=== PATIENT | male | born 1965 | race Caucasian/White ===

== ENCOUNTER 2022-06-10 10:45 | Inpatient (IN) | payer OTHER ==
[~2022-06-10] VITALS: Ht 185.4 cm; Wt 100.7 kg
[2022-06-10] VITALS (50 sets, daily range): BP systolic 102–142; BP diastolic 70–92
[2022-06-10] MEDS ORDERED: TICAGRELOR 90 MG TAB PO ONE ×3 (11:00→14:00)
[2022-06-10] MEDS ORDERED: HEPARIN SODIUM (PORCINE) 5000 UNITS/ML 1ML VIAL IV ONE ×3 (11:00→14:00)
[2022-06-10] MEDS ORDERED: ASPirin 81 mg TAB PO ONE ×3 (11:00→14:00)
[2022-06-10] MEDS ORDERED: ATORVASTATIN 20 MG TAB PO ONE (11:00)
[2022-06-10] MEDS ORDERED: HEPARIN SODIUM (PORCINE) 5000 UNITS/ML 1ML VIAL ONE ×3 (11:02→13:37)
[2022-06-10] MEDS ORDERED: ASPirin 81 mg TAB ONE (11:02)
[2022-06-10] MEDS ORDERED: ATORVASTATIN 20 MG TAB ONE (11:02)
[2022-06-10 11:11] LABS: Basophils # (auto) 0.1 10 ^3/uL (0-0.2); Eosinophils # (auto) 0.6 10 ^3/uL (0-0.8); Eosinophils % (auto) 4.4 % (0.0-7.0); Hematocrit 47.7 % (41.0-53.0); Hemoglobin 15.8 g/dL (13.5-17.5); Lymphocytes # (auto) 5.6 10 ^3/uL (0.4-5.4); Lymphocytes % (auto) 43.2 % (10.0-50.0); Mean Corpuscular Hemoglobin 28.9 pg (28.0-32.0); Mean Corpuscular Hgb Conc. 33.1 g/dL (32.0-36.0); Mean Corpuscular Volume 87.5 fL (80.0-100.0); Monocytes # (auto) 1.3 10 ^3/uL (0-1.3); Monocytes % (auto) 9.7 % (0.0-12.0); Neutrophils # (auto) 5.4 10 ^3/uL (1.6-8.6); Neutrophils % (auto) 41.7 % (37.0-80.0); Nucleated Red Blood Cells % 0.1 %; Red Blood Cells 5.45 10^6/uL (4.5-5.90); Red Cell Distribution Width 13.5 % (11.8-14.3); White Blood Cell 12.9 10^3/uL (4.4-10.8)
[2022-06-10] MEDS ORDERED: MORPHINE SULFATE INJ 2 MG/ml SYRG IV PRN ×2 (11:15→13:00)
[2022-06-10] MEDS ORDERED: MORPHINE SULFATE INJ 2 MG/ml SYRG ONE (11:16)
[2022-06-10 11:17] LABS: Albumin 3.6 g/dL (3.4-5.0); Calcium 9.7 mg/dL (8.5-10.1); Magnesium 2.3 mg/dL (1.6-2.6); Potassium 3.9 mmol/L (3.5-5.1)
[2022-06-10 11:19] LABS: BUN/Creatinine Ratio 16.8
[2022-06-10 11:22] LABS: Bilirubin, Total 0.4 mg/dL (0.2-1.0); Total Protein 7.1 g/dL (6.4-8.2)
[2022-06-10 11:28] LABS: INR 0.95 (0.9-1.15); Partial Thromboplastin Time 24.2 sec (24.6-33.4)
[2022-06-10] MEDS ORDERED: IODIXANOL 320MG/ML 100ML BTL IV ONE (11:30)
[2022-06-10] MEDS ORDERED: LIDOCAINE 2%HCL (LOCAL ANESTH.) INJ 20ML MDV ONE (11:32)
[2022-06-10] MEDS ORDERED: ANGIOMAX 250 MG VIAL IV ONE (11:36)
[2022-06-10] MEDS ORDERED: VERAPAMIL 2.5MG/ML INJ 2ML VIAL IV ONE (11:36)
[2022-06-10] MEDS ORDERED: SODIUM CHL 0.9% 50 ML ONE (11:37)
[2022-06-10] MEDS ORDERED: fentaNYL CITRATE 100 MCG/2 ML VL ONE (11:37)
[2022-06-10] MEDS ORDERED: MIDAZOLAM HCL 2MG/2ML 2ml VIAL (1mg/ml) ONE ×4 (11:37→12:11)
[2022-06-10] MEDS ORDERED: PROPOFOL 100 ML IV ONE (11:41)
[2022-06-10] MEDS ORDERED: NITROGLYCERIN 0.4 MG SL TAB SL PRN ×2 (11:45→13:00)
[2022-06-10] MEDS ORDERED: ONDANSETRON HCL 4 MG/2 ML VIAL IV PRN (11:45)
[2022-06-10] MEDS ORDERED: LORazepam 0.5 MG TAB PO PRN (11:45)
[2022-06-10] MEDS ORDERED: MAALOX PLUS or MAALOX 30 ML PO ONE (11:45)
[2022-06-10] MEDS ORDERED: MORPHINE SULFATE 4 MG/ML SYR/VIAL IV PRN (11:45)
[2022-06-10] MEDS ORDERED: NOREPINEPHRINE 8 MG/250ML KIT 250 ML IV ONE (12:09)
[2022-06-10] MEDS ORDERED: DOBUTamine 1000MCG/ML 0 ML IV ONE (12:13)
[2022-06-10] MEDS ORDERED: MIDAZOLAM HCL 5 MG/ML-1ML VIAL IV ONE (12:15)
[2022-06-10] MEDS: MIDAZOLAM DRIP 50 mg/50mL 50 ML IV SCH ×2 (13:00→18:47)
[2022-06-10] MEDS ORDERED: MIDAZOLAM DRIP 50 mg/50mL 50 ML IV ONE (13:18)
[2022-06-10] MEDS: NOREPINEPHRINE 8 MG/250ML KIT 250 ML IV SCH (13:45)
[2022-06-10] MEDS: PROPOFOL 100 ML IV SCH (14:14)
[2022-06-10] MEDS: AMIODARONE 450mg/250ml AE 250 ML IV SCH (15:52)
[2022-06-10] MEDS: SODIUM CHLORIDE 0.9% 1,000 ML IV SCH (15:52)
[2022-06-10] MEDS: fentaNYL Drip 2500mCg/250mlNS 250 ML IV SCH (16:09)
[2022-06-10 17:21] LABS: Urine Bacteria NONE SEEN /hpf (None Seen); Urine Blood 3+ /uL (Negative); Urine Mucus MODERATE (None Seen); Urine WBC 15 /hpf (0 - 3); Urine WBC Clumps PRESENT /hpf (None Seen)
[2022-06-10 17:26] LABS: Urine Specific Gravity > 1.050 (1.001-1.035)
[2022-06-10 21:39] LABS: Potassium 4.9 mmol/L (3.5-5.1)
[2022-06-10] MEDS: ENOXAPARIN SOD 60 MG/0.6 ML SYRINGE SC SCH (21:45)
[2022-06-10] MEDS: ATORVASTATIN 20 MG TAB PO SCH (21:45)
[2022-06-10] MEDS: METOPROLOL TARTRATE 25 MG TAB PO SCH (21:45)
[2022-06-10 21:47] LABS: Magnesium 2.4 mg/dL (1.6-2.6)
[2022-06-10] MEDS ORDERED: CARVEDILOL 3.125 MG TAB PO SCH (22:00)
[2022-06-10] MEDS ORDERED: ATORVASTATIN 20 MG TAB PO SCH (22:00)
[2022-06-11] VITALS (107 sets, daily range): BP systolic 83–139; BP diastolic 58–87
[2022-06-11] MEDS: MIDAZOLAM DRIP 50 mg/50mL 50 ML IV SCH ×4 (00:20→23:53)
[2022-06-11] MEDS ORDERED: MIDAZOLAM DRIP 50 mg/50mL 50 ML IV ONE (02:03)
[2022-06-11] MEDS: ACETAMINOPHEN 325 MG TAB PO PRN ×2 (03:19→11:19)
[2022-06-11 04:01] LABS: Basophils # (auto) 0 10 ^3/uL (0-0.2); Basophils % (auto) 0.2 % (0.0-2.0); Eosinophils # (auto) 0 10 ^3/uL (0-0.8); Eosinophils % (auto) 0.1 % (0.0-7.0); Hematocrit 46.1 % (41.0-53.0); Hemoglobin 14.9 g/dL (13.5-17.5); Lymphocytes # (auto) 1.4 10 ^3/uL (0.4-5.4); Lymphocytes % (auto) 7.3 % (10.0-50.0); Mean Corpuscular Hemoglobin 28.8 pg (28.0-32.0); Mean Corpuscular Hgb Conc. 32.3 g/dL (32.0-36.0); Mean Corpuscular Volume 89.2 fL (80.0-100.0); Monocytes # (auto) 1.8 10 ^3/uL (0-1.3); Monocytes % (auto) 9.4 % (0.0-12.0); Red Blood Cells 5.17 10^6/uL (4.5-5.90); Red Cell Distribution Width 14.1 % (11.8-14.3); White Blood Cell 19.2 10^3/uL (4.4-10.8)
[2022-06-11 04:23] LABS: BUN/Creatinine Ratio 27.2; Calcium 8.9 mg/dL (8.5-10.1); Potassium 4.6 mmol/L (3.5-5.1)
[2022-06-11] MEDS: AMIODARONE 450mg/250ml AE 250 ML IV SCH (05:54)
[2022-06-11] MEDS: TICAGRELOR 90 MG TAB PO SCH ×2 (09:19→22:03)
[2022-06-11] MEDS: METOPROLOL TARTRATE 25 MG TAB PO SCH ×2 (09:19→22:00)
[2022-06-11] MEDS: ASPirin 81 mg TAB PO SCH (09:20)
[2022-06-11] MEDS: DOCUSATE SOD 100 MG CAP PO SCH (09:25)
[2022-06-11] MEDS ORDERED: CLOPIDOGREL BISULFATE 75 MG TAB PO SCH (10:00)
[2022-06-11] MEDS ORDERED: ASPirin 81 mg TAB PO SCH (10:00)
[2022-06-11] MEDS: ENOXAPARIN SOD 60 MG/0.6 ML SYRINGE SC SCH (10:00)
[2022-06-11] MEDS: LISINOPRIL 5 MG TAB PO SCH (10:00)
[2022-06-11] MEDS: SODIUM CHLORIDE 0.9% 1,000 ML IV SCH (10:26)
[2022-06-11] MEDS ORDERED: AZITHROMYCIN 500MG/ 250ML 250 ML IV ONE (10:45)
[2022-06-11] MEDS ORDERED: cefTRIAXone 1GM/50ML D5W 50 ML IV ONE (10:45)
[2022-06-11] MEDS: PROPOFOL 100 ML IV SCH ×3 (13:00→18:19)
[2022-06-11] MEDS: fentaNYL Drip 2500mCg/250mlNS 250 ML IV SCH ×2 (13:00→16:45)
[2022-06-11] MEDS ORDERED: ALBUTEROL SULF 2.5 MG/0.5ML(0.5%) NEB SOLN NEB PRN (13:15)
[2022-06-11] MEDS ORDERED: ALBUTEROL MEDNEB 2.5 mg/3ml NEB ONE (13:23)
[2022-06-11] MEDS: IPRATROPIUM BROM 0.5 MG/2.5ML INH SOL NEB PRN (13:25)
[2022-06-11] MEDS: NOREPINEPHRINE 8 MG/250ML KIT 250 ML IV SCH ×2 (13:45→18:31)
[2022-06-11] MEDS ORDERED: FUROSEMIDE 20 MG/2 ML VIAL ONE (15:37)
[2022-06-11] MEDS ORDERED: FUROSEMIDE 20 MG/2 ML VIAL IV ONE (15:45)
[2022-06-11] MEDS ORDERED: ACETAMINOPHEN 650 mg PER 20.3 mL UD GT ONE (16:00)
[2022-06-11] MEDS ORDERED: ROCURONIUM 10MG/ML 10ML VIAL IV PRN (17:45)
[2022-06-11] MEDS ORDERED: ROCURONIUM 10MG/ML 10ML VIAL IV ONE (18:00)
[2022-06-11] MEDS: ATORVASTATIN 20 MG TAB PO SCH (22:03)
[2022-06-12] VITALS (105 sets, daily range): BP systolic 84–131; BP diastolic 58–84
[2022-06-12] MEDS: ACETAMINOPHEN 325 MG TAB PO PRN ×2 (01:32→09:34)
[2022-06-12] MEDS: MIDAZOLAM DRIP 50 mg/50mL 50 ML IV SCH ×4 (03:32→22:08)
[2022-06-12 03:58] LABS: Basophils # (auto) 0 10 ^3/uL (0-0.2); Basophils % (auto) 0.1 % (0.0-2.0); Eosinophils # (auto) 0 10 ^3/uL (0-0.8); Eosinophils % (auto) 0.3 % (0.0-7.0); Hemoglobin 13.3 g/dL (13.5-17.5); Lymphocytes % (auto) 5.9 % (10.0-50.0); Mean Corpuscular Hemoglobin 28.7 pg (28.0-32.0); Mean Corpuscular Hgb Conc. 32.4 g/dL (32.0-36.0); Mean Corpuscular Volume 88.5 fL (80.0-100.0); Monocytes # (auto) 2.1 10 ^3/uL (0-1.3); Monocytes % (auto) 12.5 % (0.0-12.0); Neutrophils # (auto) 13.4 10 ^3/uL (1.6-8.6); Neutrophils % (auto) 81.2 % (37.0-80.0); Red Blood Cells 4.63 10^6/uL (4.5-5.90); Red Cell Distribution Width 13.8 % (11.8-14.3); White Blood Cell 16.4 10^3/uL (4.4-10.8)
[2022-06-12 04:16] LABS: BUN/Creatinine Ratio 25.3; Calcium 8.3 mg/dL (8.5-10.1); Magnesium 2.2 mg/dL (1.6-2.6); Potassium 4.2 mmol/L (3.5-5.1)
[2022-06-12] MEDS: fentaNYL Drip 2500mCg/250mlNS 250 ML IV SCH (05:18)
[2022-06-12] MEDS: PROPOFOL 100 ML IV SCH ×2 (08:20→17:26)
[2022-06-12] MEDS ORDERED: cefTRIAXone 1GM/50ML D5W 50 ML IV SCH (09:00)
[2022-06-12] MEDS: AZITHROMYCIN 500MG/ 250ML 250 ML IV SCH (09:14)
[2022-06-12] MEDS: LEVOTHYROXINE SODIUM 100 MCG/5 ML INJ IV SCH (09:14)
[2022-06-12] MEDS: METOPROLOL TARTRATE 25 MG TAB PO SCH ×2 (09:15→21:32)
[2022-06-12] MEDS: ASPirin 81 mg TAB PO SCH (09:15)
[2022-06-12] MEDS: TICAGRELOR 90 MG TAB PO SCH ×2 (09:15→21:32)
[2022-06-12] MEDS: DOCUSATE SOD 100 MG CAP PO SCH (09:16)
[2022-06-12] MEDS: LISINOPRIL 5 MG TAB PO SCH (09:16)
[2022-06-12] MEDS ORDERED: PANTOPRAZOLE 40 MG/10 ML VIAL INJ IV ONE (11:00)
[2022-06-12] MEDS ORDERED: FUROSEMIDE 20 MG/2 ML VIAL IV ONE (11:15)
[2022-06-12] MEDS: SODIUM CHLORIDE 0.9% 1,000 ML IV SCH (11:45)
[2022-06-12] MEDS: PIPERACILLIN-TAZOB 3.375GM 100 ML IV SCH ×2 (13:54→20:02)
[2022-06-12] MEDS: ATORVASTATIN 20 MG TAB PO SCH (21:31)
[2022-06-13] VITALS (105 sets, daily range): BP systolic 87–128; BP diastolic 55–81
[2022-06-13] MEDS: ACETAMINOPHEN 325 MG TAB PO PRN ×3 (00:05→13:19)
[2022-06-13] MEDS: PIPERACILLIN-TAZOB 3.375GM 100 ML IV SCH ×3 (01:31→13:19)
[2022-06-13] MEDS: MIDAZOLAM DRIP 50 mg/50mL 50 ML IV SCH ×6 (01:32→22:34)
[2022-06-13] MEDS: PROPOFOL 100 ML IV SCH ×2 (02:29→14:53)
[2022-06-13 03:51] LABS: Basophils # (auto) 0.1 10 ^3/uL (0-0.2); Basophils % (auto) 0.4 % (0.0-2.0); Eosinophils # (auto) 0.2 10 ^3/uL (0-0.8); Eosinophils % (auto) 1.7 % (0.0-7.0); Hematocrit 38.4 % (41.0-53.0); Hemoglobin 12.4 g/dL (13.5-17.5); Lymphocytes # (auto) 1.8 10 ^3/uL (0.4-5.4); Lymphocytes % (auto) 12.1 % (10.0-50.0); Mean Corpuscular Hemoglobin 28.7 pg (28.0-32.0); Mean Corpuscular Hgb Conc. 32.3 g/dL (32.0-36.0); Mean Corpuscular Volume 88.7 fL (80.0-100.0); Monocytes # (auto) 1.5 10 ^3/uL (0-1.3); Monocytes % (auto) 10.2 % (0.0-12.0); Neutrophils # (auto) 11.2 10 ^3/uL (1.6-8.6); Neutrophils % (auto) 75.6 % (37.0-80.0); Red Blood Cells 4.33 10^6/uL (4.5-5.90); Red Cell Distribution Width 13.8 % (11.8-14.3); White Blood Cell 14.7 10^3/uL (4.4-10.8)
[2022-06-13 04:11] LABS: Albumin 2.5 g/dL (3.4-5.0); Calcium 9.2 mg/dL (8.5-10.1); Magnesium 2.3 mg/dL (1.6-2.6); Potassium 3.9 mmol/L (3.5-5.1)
[2022-06-13 04:14] LABS: BUN/Creatinine Ratio 25.6
[2022-06-13 04:17] LABS: Bilirubin, Total 1.1 mg/dL (0.2-1.0); Total Protein 6.5 g/dL (6.4-8.2)
[2022-06-13] MEDS: fentaNYL Drip 2500mCg/250mlNS 250 ML IV SCH ×2 (04:28→14:55)
[2022-06-13] MEDS: SODIUM CHLORIDE 0.9% 1,000 ML IV SCH (06:30)
[2022-06-13] MEDS ORDERED: VANCOMYCIN PER PHARMACY 0 MG IV SCH (08:15)
[2022-06-13] MEDS ORDERED: Jevity 1.2 Cal/Fiber 1 Liter GT SCH (08:30)
[2022-06-13] MEDS ORDERED: VANCOMYCIN 1GM/250ML 250 ML IV ONE (09:00)
[2022-06-13] MEDS: TICAGRELOR 90 MG TAB PO SCH ×2 (09:09→21:43)
[2022-06-13] MEDS: DOCUSATE SOD 100 MG CAP PO SCH (09:09)
[2022-06-13] MEDS: PANTOPRAZOLE 40 MG/10 ML VIAL INJ IV SCH (09:09)
[2022-06-13] MEDS: LEVOTHYROXINE SODIUM 100 MCG/5 ML INJ IV SCH (09:09)
[2022-06-13] MEDS: ASPirin 81 mg TAB PO SCH (09:09)
[2022-06-13] MEDS: METOPROLOL TARTRATE 25 MG TAB PO SCH ×2 (09:10→21:44)
[2022-06-13] MEDS: LISINOPRIL 5 MG TAB PO SCH (09:10)
[2022-06-13] MEDS: AZITHROMYCIN 500MG/ 250ML 250 ML IV SCH (10:10)
[2022-06-13] MEDS: NOREPINEPHRINE 8 MG/250ML KIT 250 ML IV SCH (13:45)
[2022-06-13] MEDS: ROCURONIUM 10MG/ML 10ML VIAL IV PRN (16:51)
[2022-06-13] MEDS: AMPICILLIN & SULBACTAM SODIUM 3 GM in SODIUM CHL 0.9% 100 ML IV SCH (18:01)
[2022-06-13] MEDS: ATORVASTATIN 20 MG TAB PO SCH (21:44)
[2022-06-14] VITALS (105 sets, daily range): BP systolic 91–143; BP diastolic 62–92
[2022-06-14] MEDS: AMPICILLIN & SULBACTAM SODIUM 3 GM in SODIUM CHL 0.9% 100 ML IV SCH ×5 (00:29→20:58)
[2022-06-14] MEDS: PROPOFOL 100 ML IV SCH ×3 (02:35→21:19)
[2022-06-14] MEDS: fentaNYL Drip 2500mCg/250mlNS 250 ML IV SCH ×2 (02:49→13:07)
[2022-06-14 04:00] LABS: Basophils # (auto) 0 10 ^3/uL (0-0.2); Basophils % (auto) 0.4 % (0.0-2.0); Eosinophils # (auto) 0.5 10 ^3/uL (0-0.8); Eosinophils % (auto) 3.7 % (0.0-7.0); Hemoglobin 11.8 g/dL (13.5-17.5); Lymphocytes # (auto) 1.3 10 ^3/uL (0.4-5.4); Mean Corpuscular Hemoglobin 29.1 pg (28.0-32.0); Mean Corpuscular Hgb Conc. 32.9 g/dL (32.0-36.0); Mean Corpuscular Volume 88.5 fL (80.0-100.0); Monocytes # (auto) 1.2 10 ^3/uL (0-1.3); Monocytes % (auto) 9.9 % (0.0-12.0); Neutrophils # (auto) 9.1 10 ^3/uL (1.6-8.6); Nucleated Red Blood Cells % 0.1 %; Red Blood Cells 4.07 10^6/uL (4.5-5.90); Red Cell Distribution Width 13.7 % (11.8-14.3); White Blood Cell 12.1 10^3/uL (4.4-10.8)
[2022-06-14 04:21] LABS: Calcium 8.9 mg/dL (8.5-10.1); Potassium 3.4 mmol/L (3.5-5.1)
[2022-06-14 04:24] LABS: BUN/Creatinine Ratio 26.3; Magnesium 2.5 mg/dL (1.6-2.6)
[2022-06-14] MEDS: METOPROLOL TARTRATE 25 MG TAB PO SCH (10:00)
[2022-06-14] MEDS: DOCUSATE SOD 100 MG CAP PO SCH (10:00)
[2022-06-14] MEDS: LISINOPRIL 5 MG TAB PO SCH (10:00)
[2022-06-14] MEDS: LEVOTHYROXINE SODIUM 100 MCG/5 ML INJ IV SCH (10:14)
[2022-06-14] MEDS: PANTOPRAZOLE 40 MG/10 ML VIAL INJ IV SCH (10:14)
[2022-06-14] MEDS: ASPirin 81 mg TAB PO SCH (10:14)
[2022-06-14] MEDS: TICAGRELOR 90 MG TAB PO SCH ×2 (10:14→21:07)
[2022-06-14] MEDS: MIDAZOLAM DRIP 50 mg/50mL 50 ML IV SCH ×3 (11:26→21:19)
[2022-06-14] MEDS ORDERED: POTASSIUM CHL 20MEQ/100ML 100 ML IV ONE ×2 (12:00→12:15)
[2022-06-14] MEDS ORDERED: ACETAMINOPHEN 650 mg PER 20.3 mL UD ONE (12:06)
[2022-06-14] MEDS: SODIUM CHLORIDE 0.9% 1,000 ML IV SCH (12:16)
[2022-06-14] MEDS ORDERED: CARVEDILOL 3.125 MG TAB PO ONE (12:30)
[2022-06-14] MEDS: NOREPINEPHRINE 8 MG/250ML KIT 250 ML IV SCH (13:45)
[2022-06-14] MEDS: IPRATROPIUM BROM 0.5 MG/2.5ML INH SOL NEB PRN ×2 (18:53→22:34)
[2022-06-14] MEDS: ALBUTEROL MEDNEB 2.5 mg/3ml NEB NEB PRN ×2 (18:53→22:34)
[2022-06-14] MEDS: ATORVASTATIN 20 MG TAB PO SCH (21:07)
[2022-06-14] MEDS: CARVEDILOL 3.125 MG TAB PO SCH (21:08)
[2022-06-15] VITALS (103 sets, daily range): BP systolic 103–128; BP diastolic 62–84
[2022-06-15] MEDS: AMPICILLIN & SULBACTAM SODIUM 3 GM in SODIUM CHL 0.9% 100 ML IV SCH ×5 (00:03→23:59)
[2022-06-15] MEDS: ACETAMINOPHEN 650 mg PER 20.3 mL UD GT PRN ×2 (00:27→17:29)
[2022-06-15] MEDS: fentaNYL Drip 2500mCg/250mlNS 250 ML IV SCH ×2 (01:06→12:01)
[2022-06-15] MEDS: MIDAZOLAM DRIP 50 mg/50mL 50 ML IV SCH ×6 (01:46→20:29)
[2022-06-15] MEDS: ALBUTEROL MEDNEB 2.5 mg/3ml NEB NEB PRN ×2 (01:53→18:29)
[2022-06-15] MEDS: IPRATROPIUM BROM 0.5 MG/2.5ML INH SOL NEB PRN ×2 (01:53→18:29)
[2022-06-15 03:44] LABS: Basophils # (auto) 0 10 ^3/uL (0-0.2); Basophils % (auto) 0.4 % (0.0-2.0); Eosinophils # (auto) 0.4 10 ^3/uL (0-0.8); Eosinophils % (auto) 4.6 % (0.0-7.0); Hematocrit 31.9 % (41.0-53.0); Hemoglobin 10.8 g/dL (13.5-17.5); Lymphocytes # (auto) 1.1 10 ^3/uL (0.4-5.4); Mean Corpuscular Hemoglobin 29.7 pg (28.0-32.0); Mean Corpuscular Hgb Conc. 33.9 g/dL (32.0-36.0); Mean Corpuscular Volume 87.6 fL (80.0-100.0); Monocytes % (auto) 12.3 % (0.0-12.0); Neutrophils # (auto) 5.7 10 ^3/uL (1.6-8.6); Neutrophils % (auto) 69.7 % (37.0-80.0); Nucleated Red Blood Cells % 0.2 %; Red Blood Cells 3.64 10^6/uL (4.5-5.90); Red Cell Distribution Width 13.6 % (11.8-14.3); White Blood Cell 8.2 10^3/uL (4.4-10.8)
[2022-06-15 03:56] LABS: Calcium 8.7 mg/dL (8.5-10.1); Magnesium 2.3 mg/dL (1.6-2.6); Potassium 3.7 mmol/L (3.5-5.1)
[2022-06-15 03:59] LABS: BUN/Creatinine Ratio 31.5
[2022-06-15] MEDS: PROPOFOL 100 ML IV SCH ×3 (05:08→20:29)
[2022-06-15] MEDS: LEVOTHYROXINE SODIUM 100 MCG/5 ML INJ IV SCH (09:45)
[2022-06-15] MEDS: PANTOPRAZOLE 40 MG/10 ML VIAL INJ IV SCH (09:45)
[2022-06-15] MEDS: CARVEDILOL 3.125 MG TAB PO SCH ×2 (09:46→21:31)
[2022-06-15] MEDS: ASPirin 81 mg TAB PO SCH (09:46)
[2022-06-15] MEDS: LISINOPRIL 5 MG TAB PO SCH (09:46)
[2022-06-15] MEDS: TICAGRELOR 90 MG TAB PO SCH ×2 (09:46→21:30)
[2022-06-15] MEDS: SODIUM CHLORIDE 0.9% 1,000 ML IV SCH (11:45)
[2022-06-15] MEDS: DOCUSATE ORAL LIQUID 100 MG/10 ML UD GT SCH (12:02)
[2022-06-15] MEDS: NOREPINEPHRINE 8 MG/250ML KIT 250 ML IV SCH (13:45)
[2022-06-15] MEDS: ATORVASTATIN 20 MG TAB PO SCH (21:31)
[2022-06-16] VITALS (105 sets, daily range): BP systolic 101–137; BP diastolic 62–92
[2022-06-16] MEDS: fentaNYL Drip 2500mCg/250mlNS 250 ML IV SCH ×3 (01:15→22:09)
[2022-06-16] MEDS: MIDAZOLAM DRIP 50 mg/50mL 50 ML IV SCH ×6 (01:16→22:10)
[2022-06-16] MEDS: PROPOFOL 100 ML IV SCH ×4 (02:21→20:42)
[2022-06-16] MEDS: ACETAMINOPHEN 650 mg PER 20.3 mL UD GT PRN ×2 (02:27→20:34)
[2022-06-16 04:16] LABS: Basophils # (auto) 0 10 ^3/uL (0-0.2); Basophils % (auto) 0.6 % (0.0-2.0); Eosinophils # (auto) 0.4 10 ^3/uL (0-0.8); Eosinophils % (auto) 5.2 % (0.0-7.0); Hematocrit 30.4 % (41.0-53.0); Hemoglobin 10.3 g/dL (13.5-17.5); Lymphocytes # (auto) 1.2 10 ^3/uL (0.4-5.4); Lymphocytes % (auto) 14.9 % (10.0-50.0); Mean Corpuscular Hemoglobin 29.5 pg (28.0-32.0); Mean Corpuscular Hgb Conc. 33.7 g/dL (32.0-36.0); Mean Corpuscular Volume 87.8 fL (80.0-100.0); Monocytes # (auto) 0.9 10 ^3/uL (0-1.3); Monocytes % (auto) 11.3 % (0.0-12.0); Neutrophils # (auto) 5.5 10 ^3/uL (1.6-8.6); Nucleated Red Blood Cells % 0.1 %; Red Blood Cells 3.47 10^6/uL (4.5-5.90); Red Cell Distribution Width 13.8 % (11.8-14.3); White Blood Cell 8.1 10^3/uL (4.4-10.8)
[2022-06-16 05:27] LABS: Calcium 8.7 mg/dL (8.5-10.1); Magnesium 2.3 mg/dL (1.6-2.6); Potassium 3.6 mmol/L (3.5-5.1)
[2022-06-16 05:29] LABS: BUN/Creatinine Ratio 30.3
[2022-06-16] MEDS: AMPICILLIN & SULBACTAM SODIUM 3 GM in SODIUM CHL 0.9% 100 ML IV SCH ×4 (05:51→23:33)
[2022-06-16] MEDS: SODIUM CHLORIDE 0.9% 1,000 ML IV SCH (06:26)
[2022-06-16] MEDS: DOCUSATE ORAL LIQUID 100 MG/10 ML UD GT SCH (09:20)
[2022-06-16] MEDS: TICAGRELOR 90 MG TAB PO SCH ×2 (09:20→21:58)
[2022-06-16] MEDS: PANTOPRAZOLE 40 MG/10 ML VIAL INJ IV SCH (09:20)
[2022-06-16] MEDS: LEVOTHYROXINE SODIUM 100 MCG/5 ML INJ IV SCH (09:20)
[2022-06-16] MEDS: CARVEDILOL 3.125 MG TAB PO SCH ×2 (09:20→21:59)
[2022-06-16] MEDS: ASPirin 81 mg TAB PO SCH (09:20)
[2022-06-16] MEDS: LISINOPRIL 5 MG TAB PO SCH (09:21)
[2022-06-16] MEDS: ALBUTEROL MEDNEB 2.5 mg/3ml NEB NEB PRN (10:36)
[2022-06-16] MEDS: IPRATROPIUM BROM 0.5 MG/2.5ML INH SOL NEB PRN (10:36)
[2022-06-16] MEDS ORDERED: LACTULOSE 20Gm/30ML SOLN PO ONE (11:45)
[2022-06-16] MEDS: NOREPINEPHRINE 8 MG/250ML KIT 250 ML IV SCH (13:45)
[2022-06-16] MEDS ORDERED: FUROSEMIDE 40 MG/4 ML VIAL IV ONE (16:00)
[2022-06-16] MEDS ORDERED: POTASSIUM EFFERVESENT TAB 25 MEQ GT ONE (16:00)
[2022-06-16] MEDS: ATORVASTATIN 20 MG TAB PO SCH (21:59)
[2022-06-17] VITALS (104 sets, daily range): BP systolic 100–150; BP diastolic 60–97
[2022-06-17] MEDS: PROPOFOL 100 ML IV SCH ×5 (01:23→22:26)
[2022-06-17] MEDS: MIDAZOLAM DRIP 50 mg/50mL 50 ML IV SCH ×4 (01:24→19:46)
[2022-06-17 03:34] LABS: Basophils # (auto) 0 10 ^3/uL (0-0.2); Basophils % (auto) 0.6 % (0.0-2.0); Eosinophils # (auto) 0.6 10 ^3/uL (0-0.8); Eosinophils % (auto) 6.6 % (0.0-7.0); Hematocrit 31.5 % (41.0-53.0); Hemoglobin 10.5 g/dL (13.5-17.5); Lymphocytes # (auto) 1.5 10 ^3/uL (0.4-5.4); Lymphocytes % (auto) 17.2 % (10.0-50.0); Mean Corpuscular Hemoglobin 29.4 pg (28.0-32.0); Mean Corpuscular Hgb Conc. 33.4 g/dL (32.0-36.0); Mean Corpuscular Volume 88.1 fL (80.0-100.0); Monocytes # (auto) 1.1 10 ^3/uL (0-1.3); Monocytes % (auto) 12.9 % (0.0-12.0); Neutrophils # (auto) 5.4 10 ^3/uL (1.6-8.6); Neutrophils % (auto) 62.7 % (37.0-80.0); Nucleated Red Blood Cells % 0.1 %; Red Blood Cells 3.58 10^6/uL (4.5-5.90); White Blood Cell 8.6 10^3/uL (4.4-10.8)
[2022-06-17 03:50] LABS: BUN/Creatinine Ratio 30.9; Calcium 8.7 mg/dL (8.5-10.1); Magnesium 2.7 mg/dL (1.6-2.6); Potassium 3.7 mmol/L (3.5-5.1)
[2022-06-17] MEDS: AMPICILLIN & SULBACTAM SODIUM 3 GM in SODIUM CHL 0.9% 100 ML IV SCH (05:46)
[2022-06-17] MEDS: ALBUTEROL MEDNEB 2.5 mg/3ml NEB NEB PRN ×3 (07:53→14:48)
[2022-06-17] MEDS: IPRATROPIUM BROM 0.5 MG/2.5ML INH SOL NEB PRN ×3 (07:53→14:48)
[2022-06-17] MEDS ORDERED: LACTULOSE 20Gm/30ML SOLN PO PRN (09:00)
[2022-06-17] MEDS: TICAGRELOR 90 MG TAB PO SCH ×2 (09:59→22:32)
[2022-06-17] MEDS ORDERED: FUROSEMIDE 40 MG/4 ML VIAL IV SCH (10:00)
[2022-06-17] MEDS: PANTOPRAZOLE 40 MG/10 ML VIAL INJ IV SCH (10:00)
[2022-06-17] MEDS: POTASSIUM EFFERVESENT TAB 25 MEQ GT SCH (10:00)
[2022-06-17] MEDS: CARVEDILOL 3.125 MG TAB PO SCH ×2 (10:00→22:32)
[2022-06-17] MEDS: LEVOTHYROXINE SODIUM 100 MCG/5 ML INJ IV SCH (10:00)
[2022-06-17] MEDS: DOCUSATE ORAL LIQUID 100 MG/10 ML UD GT SCH (10:00)
[2022-06-17] MEDS: LISINOPRIL 5 MG TAB PO SCH (10:01)
[2022-06-17] MEDS: ACETAMINOPHEN 650 mg PER 20.3 mL UD GT PRN ×2 (10:01→17:18)
[2022-06-17] MEDS: ASPirin 81 mg TAB PO SCH (10:01)
[2022-06-17] MEDS ORDERED: VANCOMYCIN PER PHARMACY 0 MG IV SCH (12:30)
[2022-06-17] MEDS ORDERED: VANCOMYCIN 1GM/250ML 250 ML IV ONE (13:00)
[2022-06-17] MEDS: NOREPINEPHRINE 8 MG/250ML KIT 250 ML IV SCH (13:45)
[2022-06-17] MEDS: PIPERACILLIN-TAZOB 3.375GM 100 ML IV SCH ×3 (14:26→23:58)
[2022-06-17 16:31] LABS: Urine Bacteria NONE SEEN /hpf (None Seen); Urine Blood 2+ /uL (Negative); Urine Hyaline Cast MOD /lpf (0 - 2); Urine Mucus FEW (None Seen); Urine Specific Gravity 1.013 (1.001-1.035); Urine WBC 2 /hpf (0 - 3)
[2022-06-17] MEDS: FUROSEMIDE 40 MG/4 ML VIAL IV SCH (18:14)
[2022-06-17] MEDS ORDERED: ARTIFICIAL TEARS 15ml EACHEYE PRN (19:00)
[2022-06-17] MEDS: VANCOMYCIN 1GM/250ML 250 ML IV SCH (21:16)
[2022-06-17] MEDS: ATORVASTATIN 20 MG TAB PO SCH (22:32)
[2022-06-18] VITALS (102 sets, daily range): BP systolic 89–140; BP diastolic 46–91
[2022-06-18] MEDS: fentaNYL Drip 2500mCg/250mlNS 250 ML IV SCH ×3 (00:17→23:11)
[2022-06-18] MEDS: MIDAZOLAM DRIP 50 mg/50mL 50 ML IV SCH ×6 (03:53→23:17)
[2022-06-18 03:56] LABS: Basophils # (auto) 0.1 10 ^3/uL (0-0.2); Basophils % (auto) 0.5 % (0.0-2.0); Eosinophils # (auto) 0.6 10 ^3/uL (0-0.8); Eosinophils % (auto) 5.4 % (0.0-7.0); Hemoglobin 10.7 g/dL (13.5-17.5); Lymphocytes # (auto) 1.5 10 ^3/uL (0.4-5.4); Lymphocytes % (auto) 14.2 % (10.0-50.0); Mean Corpuscular Hgb Conc. 33.3 g/dL (32.0-36.0); Mean Corpuscular Volume 87.1 fL (80.0-100.0); Monocytes # (auto) 1.3 10 ^3/uL (0-1.3); Monocytes % (auto) 12.8 % (0.0-12.0); Neutrophils % (auto) 67.1 % (37.0-80.0); Nucleated Red Blood Cells % 0.2 %; Red Blood Cells 3.68 10^6/uL (4.5-5.90); Red Cell Distribution Width 13.7 % (11.8-14.3); White Blood Cell 10.4 10^3/uL (4.4-10.8)
[2022-06-18 04:22] LABS: Calcium 8.8 mg/dL (8.5-10.1); Magnesium 2.4 mg/dL (1.6-2.6); Potassium 3.4 mmol/L (3.5-5.1)
[2022-06-18] MEDS: VANCOMYCIN 1GM/250ML 250 ML IV SCH ×3 (04:30→22:52)
[2022-06-18] MEDS: PIPERACILLIN-TAZOB 3.375GM 100 ML IV SCH ×3 (05:59→17:33)
[2022-06-18] MEDS: FUROSEMIDE 40 MG/4 ML VIAL IV SCH ×2 (05:59→17:33)
[2022-06-18] MEDS: PROPOFOL 100 ML IV SCH ×4 (07:15→23:15)
[2022-06-18] MEDS: POTASSIUM EFFERVESENT TAB 25 MEQ GT SCH (09:28)
[2022-06-18] MEDS: ASPirin 81 mg TAB PO SCH (09:28)
[2022-06-18] MEDS: TICAGRELOR 90 MG TAB PO SCH ×2 (09:28→21:40)
[2022-06-18] MEDS: PANTOPRAZOLE 40 MG/10 ML VIAL INJ IV SCH (09:28)
[2022-06-18] MEDS: DOCUSATE ORAL LIQUID 100 MG/10 ML UD GT SCH (09:34)
[2022-06-18] MEDS: LEVOTHYROXINE SODIUM 100 MCG/5 ML INJ IV SCH (09:34)
[2022-06-18] MEDS: CARVEDILOL 3.125 MG TAB PO SCH ×2 (09:35→21:41)
[2022-06-18] MEDS: LISINOPRIL 5 MG TAB PO SCH (09:35)
[2022-06-18] MEDS ORDERED: POTASSIUM CHL 20MEQ/100ML 100 ML IV ONE (11:30)
[2022-06-18] MEDS ORDERED: GLYCOPYRROLATE 0.2 MG/ML 1ML VIAL ONE (11:38)
[2022-06-18] MEDS ORDERED: BENZOCAINE (DENTAL) 20 % SPRAY 60ML MT ONE (11:38)
[2022-06-18] MEDS ORDERED: EPINEPHrine HCL 1 MG/1 ML AMP ONE (11:38)
[2022-06-18] MEDS ORDERED: ONDANSETRON HCL 4 MG/2 ML VIAL ONE (11:49)
[2022-06-18] MEDS ORDERED: fentaNYL CITRATE 100 MCG/2 ML VL ONE (11:49)
[2022-06-18] MEDS ORDERED: MIDAZOLAM HCL 2MG/2ML 2ml VIAL (1mg/ml) ONE (11:49)
[2022-06-18] MEDS: NOREPINEPHRINE 8 MG/250ML KIT 250 ML IV SCH (13:45)
[2022-06-18] MEDS: ACETAMINOPHEN 650 mg PER 20.3 mL UD GT PRN (15:42)
[2022-06-18] MEDS: ROCURONIUM 10MG/ML 10ML VIAL IV PRN ×2 (17:36→19:54)
[2022-06-18] MEDS: ATORVASTATIN 20 MG TAB PO SCH (21:40)
[2022-06-19] VITALS (105 sets, daily range): BP systolic 90–152; BP diastolic 53–100
[2022-06-19] MEDS: PIPERACILLIN-TAZOB 3.375GM 100 ML IV SCH ×4 (00:08→17:58)
[2022-06-19] MEDS: PROPOFOL 100 ML IV SCH ×6 (01:39→21:59)
[2022-06-19] MEDS: MIDAZOLAM DRIP 50 mg/50mL 50 ML IV SCH ×5 (02:31→20:36)
[2022-06-19 03:31] LABS: Hematocrit 31.3 % (41.0-53.0); Hemoglobin 10.2 g/dL (13.5-17.5); Mean Corpuscular Hemoglobin 28.4 pg (28.0-32.0); Mean Corpuscular Hgb Conc. 32.5 g/dL (32.0-36.0); Mean Corpuscular Volume 87.5 fL (80.0-100.0); Red Blood Cells 3.58 10^6/uL (4.5-5.90); Red Cell Distribution Width 13.5 % (11.8-14.3); White Blood Cell 11.4 10^3/uL (4.4-10.8)
[2022-06-19 03:33] LABS: Basophils % (manual) 0 (0.0-2.0); Blast Cells 0; Metamyelocytes % 0; Myelocytes % 0; Promyelocytes % 0; Reactive Lymphocytes 0
[2022-06-19 03:47] LABS: BUN/Creatinine Ratio 31.5; Calcium 8.8 mg/dL (8.5-10.1); Magnesium 2.4 mg/dL (1.6-2.6); Potassium 3.7 mmol/L (3.5-5.1)
[2022-06-19] MEDS: FUROSEMIDE 40 MG/4 ML VIAL IV SCH ×2 (05:34→17:59)
[2022-06-19 07:26] LABS: Band Neutrophils % (manual) 16; Eosinophils % (manual) 6 (0-7); Lymphocytes % (manual) 17 (10.0-50.0); Monocytes % (manual) 8 (0-12)
[2022-06-19] MEDS: VANCOMYCIN 1GM/250ML 250 ML IV SCH ×2 (09:21→20:39)
[2022-06-19] MEDS: LISINOPRIL 5 MG TAB PO SCH (09:43)
[2022-06-19] MEDS: DOCUSATE ORAL LIQUID 100 MG/10 ML UD GT SCH (09:43)
[2022-06-19] MEDS: POTASSIUM EFFERVESENT TAB 25 MEQ GT SCH (09:47)
[2022-06-19] MEDS: PANTOPRAZOLE 40 MG/10 ML VIAL INJ IV SCH (09:48)
[2022-06-19] MEDS: CARVEDILOL 3.125 MG TAB PO SCH ×2 (09:48→22:09)
[2022-06-19] MEDS: LEVOTHYROXINE SODIUM 100 MCG/5 ML INJ IV SCH (09:49)
[2022-06-19] MEDS: ASPirin 81 mg TAB PO SCH (10:00)
[2022-06-19] MEDS: TICAGRELOR 90 MG TAB PO SCH ×2 (10:00→22:00)
[2022-06-19] MEDS: fentaNYL Drip 2500mCg/250mlNS 250 ML IV SCH ×2 (13:38→22:48)
[2022-06-19] MEDS: NOREPINEPHRINE 8 MG/250ML KIT 250 ML IV SCH (13:45)
[2022-06-19] MEDS ORDERED: AMIODARONE HCL 200 MG TAB GT ONE (14:45)
[2022-06-19] MEDS: ACETAMINOPHEN 650 mg PER 20.3 mL UD GT PRN (16:43)
[2022-06-19] MEDS: AMIODARONE HCL 200 MG TAB GT SCH (22:09)
[2022-06-19] MEDS: ATORVASTATIN 20 MG TAB PO SCH (22:10)
[2022-06-20] VITALS (106 sets, daily range): BP systolic 94–131; BP diastolic 58–79
[2022-06-20] MEDS: PIPERACILLIN-TAZOB 3.375GM 100 ML IV SCH ×3 (00:11→12:40)
[2022-06-20] MEDS: MIDAZOLAM DRIP 50 mg/50mL 50 ML IV SCH ×5 (00:17→19:42)
[2022-06-20] MEDS: PROPOFOL 100 ML IV SCH ×5 (01:10→19:41)
[2022-06-20 04:08] LABS: Hematocrit 32.6 % (41.0-53.0); Hemoglobin 10.9 g/dL (13.5-17.5); Mean Corpuscular Hemoglobin 29.7 pg (28.0-32.0); Mean Corpuscular Hgb Conc. 33.4 g/dL (32.0-36.0); Mean Corpuscular Volume 88.9 fL (80.0-100.0); Red Blood Cells 3.67 10^6/uL (4.5-5.90); Red Cell Distribution Width 13.5 % (11.8-14.3); White Blood Cell 9.7 10^3/uL (4.4-10.8)
[2022-06-20 04:12] LABS: BUN/Creatinine Ratio 31.5; Calcium 9.3 mg/dL (8.5-10.1); Magnesium 2.4 mg/dL (1.6-2.6); Potassium 3.7 mmol/L (3.5-5.1)
[2022-06-20 04:14] LABS: Blast Cells 0; Metamyelocytes % 0; Myelocytes % 0; Promyelocytes % 0; Reactive Lymphocytes 0
[2022-06-20 04:30] LABS: Band Neutrophils % (manual) 1; Basophils % (manual) 1 (0.0-2.0); Eosinophils % (manual) 6 (0-7); Lymphocytes % (manual) 18 (10.0-50.0); Monocytes % (manual) 9 (0-12)
[2022-06-20] MEDS: VANCOMYCIN 1GM/250ML 250 ML IV SCH (04:34)
[2022-06-20] MEDS: FUROSEMIDE 40 MG/4 ML VIAL IV SCH ×2 (06:02→18:28)
[2022-06-20] MEDS: DOCUSATE ORAL LIQUID 100 MG/10 ML UD GT SCH (09:16)
[2022-06-20] MEDS: LISINOPRIL 5 MG TAB PO SCH (10:00)
[2022-06-20] MEDS: LEVOTHYROXINE SODIUM 100 MCG/5 ML INJ IV SCH (10:20)
[2022-06-20] MEDS: PANTOPRAZOLE 40 MG/10 ML VIAL INJ IV SCH (10:20)
[2022-06-20] MEDS: AMIODARONE HCL 200 MG TAB GT SCH ×2 (10:27→21:27)
[2022-06-20] MEDS: POTASSIUM EFFERVESENT TAB 25 MEQ GT SCH (10:27)
[2022-06-20] MEDS: CARVEDILOL 3.125 MG TAB PO SCH ×2 (10:27→21:27)
[2022-06-20] MEDS ORDERED: POTASSIUM EFFERVESENT TAB 25 MEQ GT ONE (10:30)
[2022-06-20] MEDS: TICAGRELOR 90 MG TAB PO SCH ×2 (10:47→21:27)
[2022-06-20] MEDS: ASPirin 81 mg TAB PO SCH (10:47)
[2022-06-20 11:34] LABS: INR 0.97 (0.9-1.15); Partial Thromboplastin Time 27.2 sec (24.6-33.4)
[2022-06-20] MEDS: ACETAMINOPHEN 650 mg PER 20.3 mL UD GT PRN (13:43)
[2022-06-20] MEDS: ROCURONIUM 10MG/ML 10ML VIAL IV PRN (14:09)
[2022-06-20] MEDS: fentaNYL Drip 2500mCg/250mlNS 250 ML IV SCH (14:45)
[2022-06-20] MEDS: NOREPINEPHRINE 8 MG/250ML KIT 250 ML IV SCH (17:10)
[2022-06-20] MEDS: ATORVASTATIN 20 MG TAB PO SCH (21:28)
[2022-06-21] VITALS (103 sets, daily range): BP systolic 93–129; BP diastolic 60–88
[2022-06-21] MEDS: PROPOFOL 100 ML IV SCH ×8 (00:18→22:59)
[2022-06-21] MEDS: MIDAZOLAM DRIP 50 mg/50mL 50 ML IV SCH ×7 (00:19→22:20)
[2022-06-21] MEDS: fentaNYL Drip 2500mCg/250mlNS 250 ML IV SCH ×3 (00:20→22:19)
[2022-06-21] MEDS: ACETAMINOPHEN 650 mg PER 20.3 mL UD GT PRN (01:30)
[2022-06-21] MEDS: ROCURONIUM 10MG/ML 10ML VIAL IV PRN ×2 (01:39→08:25)
[2022-06-21 03:58] LABS: White Blood Cell 15.5 10^3/uL (4.4-10.8)
[2022-06-21 04:01] LABS: Hematocrit 35.8 % (41.0-53.0); Hemoglobin 11.8 g/dL (13.5-17.5); Mean Corpuscular Hemoglobin 29.2 pg (28.0-32.0); Mean Corpuscular Hgb Conc. 33.1 g/dL (32.0-36.0); Mean Corpuscular Volume 88.3 fL (80.0-100.0); Red Blood Cells 4.05 10^6/uL (4.5-5.90); Red Cell Distribution Width 13.6 % (11.8-14.3)
[2022-06-21 04:11] LABS: Anion Gap 6 (5-15); BUN/Creatinine Ratio 27.7; Blood Urea Nitrogen 23 mg/dL (7-18); Calcium 9.3 mg/dL (8.5-10.1); Carbon Dioxide 31 mmol/L (21-32); Chloride 98 mmol/L (98-107); GFR African American 123 mL/min; GFR Non-African American 101 mL/min; Glucose 95 mg/dL (74-106); Potassium 4.1 mmol/L (3.5-5.1); Sodium 135 mmol/L (136-145)
[2022-06-21 04:36] LABS: Basophils % (manual) 0 (0.0-2.0); Blast Cells 0; Metamyelocytes % 0; Myelocytes % 0; Promyelocytes % 0; Reactive Lymphocytes 0
[2022-06-21 04:38] LABS: Band Neutrophils % (manual) 2; Eosinophils % (manual) 6 (0-7); Lymphocytes % (manual) 19 (10.0-50.0); Monocytes % (manual) 8 (0-12)
[2022-06-21] MEDS: FUROSEMIDE 40 MG/4 ML VIAL IV SCH ×2 (05:55→17:46)
[2022-06-21] MEDS: IPRATROPIUM BROM 0.5 MG/2.5ML INH SOL NEB PRN (08:25)
[2022-06-21] MEDS: ALBUTEROL MEDNEB 2.5 mg/3ml NEB NEB PRN (08:25)
[2022-06-21] MEDS: LISINOPRIL 5 MG TAB PO SCH (10:00)
[2022-06-21] MEDS: DOCUSATE ORAL LIQUID 100 MG/10 ML UD GT SCH (10:00)
[2022-06-21] MEDS: PANTOPRAZOLE 40 MG/10 ML VIAL INJ IV SCH (10:25)
[2022-06-21] MEDS: LEVOTHYROXINE SODIUM 100 MCG/5 ML INJ IV SCH (10:25)
[2022-06-21] MEDS: AMIODARONE HCL 200 MG TAB GT SCH ×2 (10:25→21:51)
[2022-06-21] MEDS: POTASSIUM EFFERVESENT TAB 25 MEQ GT SCH (10:25)
[2022-06-21] MEDS: CARVEDILOL 3.125 MG TAB PO SCH ×2 (10:26→21:52)
[2022-06-21] MEDS: ASPirin 81 mg TAB PO SCH (10:26)
[2022-06-21] MEDS: TICAGRELOR 90 MG TAB PO SCH ×2 (11:01→21:52)
[2022-06-21] MEDS: NOREPINEPHRINE 8 MG/250ML KIT 250 ML IV SCH (13:45)
[2022-06-21] MEDS: ATORVASTATIN 20 MG TAB PO SCH (21:51)
[2022-06-22] VITALS (103 sets, daily range): BP systolic 94–131; BP diastolic 57–81
[2022-06-22] MEDS: MIDAZOLAM DRIP 50 mg/50mL 50 ML IV SCH ×4 (01:15→17:00)
[2022-06-22] MEDS: PROPOFOL 100 ML IV SCH ×8 (02:40→22:42)
[2022-06-22 03:57] LABS: Hematocrit 33.8 % (41.0-53.0); Mean Corpuscular Hemoglobin 28.4 pg (28.0-32.0); Mean Corpuscular Hgb Conc. 32.5 g/dL (32.0-36.0); Mean Corpuscular Volume 87.5 fL (80.0-100.0); Red Blood Cells 3.86 10^6/uL (4.5-5.90); Red Cell Distribution Width 13.3 % (11.8-14.3); White Blood Cell 10.3 10^3/uL (4.4-10.8)
[2022-06-22 04:06] LABS: Basophils % (manual) 0 (0.0-2.0); Blast Cells 0; Myelocytes % 0; Promyelocytes % 0; Reactive Lymphocytes 0
[2022-06-22 04:07] LABS: BUN/Creatinine Ratio 23.9; Calcium 9.5 mg/dL (8.5-10.1); Magnesium 2.3 mg/dL (1.6-2.6); Potassium 3.4 mmol/L (3.5-5.1)
[2022-06-22] MEDS: FUROSEMIDE 40 MG/4 ML VIAL IV SCH ×2 (05:57→18:24)
[2022-06-22 06:17] LABS: Band Neutrophils % (manual) 6; Eosinophils % (manual) 1 (0-7); Lymphocytes % (manual) 18 (10.0-50.0); Metamyelocytes % 1; Monocytes % (manual) 10 (0-12)
[2022-06-22] MEDS: ASPirin 81 mg TAB PO SCH (09:52)
[2022-06-22] MEDS: POTASSIUM EFFERVESENT TAB 25 MEQ GT SCH (09:52)
[2022-06-22] MEDS: AMIODARONE HCL 200 MG TAB GT SCH ×2 (09:52→21:23)
[2022-06-22] MEDS: TICAGRELOR 90 MG TAB PO SCH ×2 (09:52→21:22)
[2022-06-22] MEDS: PANTOPRAZOLE 40 MG/10 ML VIAL INJ IV SCH (09:53)
[2022-06-22] MEDS: CARVEDILOL 3.125 MG TAB PO SCH ×2 (09:53→21:22)
[2022-06-22] MEDS: LEVOTHYROXINE SODIUM 100 MCG/5 ML INJ IV SCH (09:54)
[2022-06-22] MEDS: DOCUSATE ORAL LIQUID 100 MG/10 ML UD GT SCH (10:00)
[2022-06-22] MEDS: LISINOPRIL 5 MG TAB PO SCH (10:00)
[2022-06-22] MEDS: fentaNYL Drip 2500mCg/250mlNS 250 ML IV SCH ×2 (10:34→22:28)
[2022-06-22] MEDS: NOREPINEPHRINE 8 MG/250ML KIT 250 ML IV SCH (14:59)
[2022-06-22] MEDS: ACETAMINOPHEN 650 mg PER 20.3 mL UD GT PRN (16:23)
[2022-06-22] MEDS: ATORVASTATIN 20 MG TAB PO SCH (21:23)
[2022-06-23] VITALS (102 sets, daily range): BP systolic 92–144; BP diastolic 52–88
[2022-06-23] MEDS: MIDAZOLAM DRIP 50 mg/50mL 50 ML IV SCH ×3 (00:17→15:26)
[2022-06-23] MEDS: PROPOFOL 100 ML IV SCH ×7 (00:32→21:44)
[2022-06-23 03:56] LABS: Hemoglobin 10.8 g/dL (13.5-17.5)
[2022-06-23 03:57] LABS: BUN/Creatinine Ratio 26.6; Calcium 9.4 mg/dL (8.5-10.1); Magnesium 2.2 mg/dL (1.6-2.6); Potassium 3.6 mmol/L (3.5-5.1)
[2022-06-23 04:00] LABS: Hematocrit 32.3 % (41.0-53.0); Mean Corpuscular Hgb Conc. 33.5 g/dL (32.0-36.0); Mean Corpuscular Volume 86.4 fL (80.0-100.0); Red Blood Cells 3.74 10^6/uL (4.5-5.90); Red Cell Distribution Width 13.3 % (11.8-14.3); White Blood Cell 12.2 10^3/uL (4.4-10.8)
[2022-06-23 04:09] LABS: Basophils % (manual) 0 (0.0-2.0); Blast Cells 0; Metamyelocytes % 0; Myelocytes % 0; Promyelocytes % 0; Reactive Lymphocytes 0
[2022-06-23 05:23] LABS: Band Neutrophils % (manual) 1; Eosinophils % (manual) 3 (0-7); Lymphocytes % (manual) 21 (10.0-50.0); Monocytes % (manual) 9 (0-12)
[2022-06-23] MEDS: FUROSEMIDE 40 MG/4 ML VIAL IV SCH ×2 (05:29→18:27)
[2022-06-23] MEDS: ACETAMINOPHEN 650 mg PER 20.3 mL UD GT PRN ×2 (06:00→20:06)
[2022-06-23] MEDS: fentaNYL Drip 2500mCg/250mlNS 250 ML IV SCH ×2 (09:00→21:01)
[2022-06-23] MEDS: POTASSIUM EFFERVESENT TAB 25 MEQ GT SCH (09:13)
[2022-06-23] MEDS: PANTOPRAZOLE 40 MG/10 ML VIAL INJ IV SCH ×2 (09:13→21:53)
[2022-06-23] MEDS: DOCUSATE ORAL LIQUID 100 MG/10 ML UD GT SCH (09:13)
[2022-06-23] MEDS: LEVOTHYROXINE SODIUM 100 MCG/5 ML INJ IV SCH (09:14)
[2022-06-23] MEDS: AMIODARONE HCL 200 MG TAB GT SCH ×2 (09:14→21:53)
[2022-06-23] MEDS: TICAGRELOR 90 MG TAB PO SCH ×2 (09:16→22:00)
[2022-06-23] MEDS: CARVEDILOL 3.125 MG TAB PO SCH ×2 (09:16→21:53)
[2022-06-23] MEDS: ASPirin 81 mg TAB PO SCH (09:16)
[2022-06-23] MEDS: LISINOPRIL 5 MG TAB PO SCH (09:16)
[2022-06-23] MEDS: NOREPINEPHRINE 8 MG/250ML KIT 250 ML IV SCH (13:45)
[2022-06-23] MEDS ORDERED: MIDAZOLAM HCL 2MG/2ML 2ml VIAL (1mg/ml) ONE (14:52)
[2022-06-23] MEDS ORDERED: LIDOCAINE 2% JELLY 11ml (GLYDO) ONE (14:52)
[2022-06-23] MEDS ORDERED: fentaNYL CITRATE 100 MCG/2 ML VL ONE (14:53)
[2022-06-23] MEDS ORDERED: diphenhdrAMINE HCL 50 MG/1 ML VL ONE (14:53)
[2022-06-23] MEDS ORDERED: ETOMIDATE (2MG/ML) 20ML VIAL IV ONE (16:14)
[2022-06-23] MEDS ORDERED: ROCURONIUM 10MG/ML 10ML VIAL IV ONE (16:15)
[2022-06-23] MEDS: ATORVASTATIN 20 MG TAB PO SCH (21:53)
[2022-06-24] VITALS (105 sets, daily range): BP systolic 88–127; BP diastolic 52–78
[2022-06-24] MEDS: PROPOFOL 100 ML IV SCH ×9 (00:21→23:52)
[2022-06-24] MEDS: MIDAZOLAM DRIP 50 mg/50mL 50 ML IV SCH ×6 (00:45→19:52)
[2022-06-24 04:38] LABS: Basophils # (auto) 0.1 10 ^3/uL (0-0.2); Basophils % (auto) 0.7 % (0.0-2.0); Eosinophils # (auto) 0.4 10 ^3/uL (0-0.8); Eosinophils % (auto) 2.4 % (0.0-7.0); Hematocrit 31.8 % (41.0-53.0); Hemoglobin 10.7 g/dL (13.5-17.5); Lymphocytes # (auto) 2.2 10 ^3/uL (0.4-5.4); Lymphocytes % (auto) 13.8 % (10.0-50.0); Mean Corpuscular Hgb Conc. 33.7 g/dL (32.0-36.0); Mean Corpuscular Volume 86.2 fL (80.0-100.0); Monocytes # (auto) 1.4 10 ^3/uL (0-1.3); Monocytes % (auto) 8.8 % (0.0-12.0); Neutrophils # (auto) 11.8 10 ^3/uL (1.6-8.6); Neutrophils % (auto) 74.3 % (37.0-80.0); Nucleated Red Blood Cells % 0.1 %; Red Blood Cells 3.69 10^6/uL (4.5-5.90); Red Cell Distribution Width 13.2 % (11.8-14.3); White Blood Cell 15.9 10^3/uL (4.4-10.8)
[2022-06-24 04:49] LABS: BUN/Creatinine Ratio 29.7; Calcium 9.6 mg/dL (8.5-10.1); Magnesium 2.3 mg/dL (1.6-2.6); Potassium 3.4 mmol/L (3.5-5.1)
[2022-06-24 04:54] LABS: INR 1.02 (0.9-1.15); Partial Thromboplastin Time 29.1 sec (24.6-33.4)
[2022-06-24] MEDS: FUROSEMIDE 40 MG/4 ML VIAL IV SCH (06:00)
[2022-06-24] MEDS: fentaNYL Drip 2500mCg/250mlNS 250 ML IV SCH ×2 (08:32→20:58)
[2022-06-24] MEDS ORDERED: VANCOMYCIN PER PHARMACY 0 MG IV SCH (09:15)
[2022-06-24] MEDS ORDERED: VANCOMYCIN 1GM/250ML 250 ML IV ONE (09:15)
[2022-06-24] MEDS ORDERED: POTASSIUM CHL 20MEQ/100ML 100 ML IV ONE (09:30)
[2022-06-24] MEDS: POTASSIUM EFFERVESENT TAB 25 MEQ GT SCH (09:40)
[2022-06-24 10:09] LABS: Urine Amorphous Crystal FEW /hpf (None Seen); Urine Bacteria NONE SEEN /hpf (None Seen); Urine Blood 3+ /uL (Negative); Urine Hyaline Cast FEW /lpf (0 - 2); Urine Mucus FEW (None Seen); Urine Specific Gravity 1.016 (1.001-1.035); Urine WBC 3 /hpf (0 - 3)
[2022-06-24] MEDS: TICAGRELOR 90 MG TAB PO SCH ×2 (10:23→22:30)
[2022-06-24] MEDS: DOCUSATE ORAL LIQUID 100 MG/10 ML UD GT SCH (10:23)
[2022-06-24] MEDS: AMIODARONE HCL 200 MG TAB GT SCH ×2 (10:23→22:28)
[2022-06-24] MEDS: ASPirin 81 mg TAB PO SCH (10:23)
[2022-06-24] MEDS: PANTOPRAZOLE 40 MG/10 ML VIAL INJ IV SCH ×2 (10:23→22:29)
[2022-06-24] MEDS: LISINOPRIL 5 MG TAB PO SCH (10:35)
[2022-06-24] MEDS: CARVEDILOL 3.125 MG TAB PO SCH ×2 (10:36→22:28)
[2022-06-24] MEDS: LEVOTHYROXINE SODIUM 100 MCG/5 ML INJ IV SCH (10:45)
[2022-06-24] MEDS: NOREPINEPHRINE 8 MG/250ML KIT 250 ML IV SCH (14:03)
[2022-06-24] MEDS: MEROPENEM 1GM IVPB 100 ML IV SCH ×2 (14:35→22:29)
[2022-06-24] MEDS: VANCOMYCIN 1GM/250ML 250 ML IV SCH (17:50)
[2022-06-24] MEDS: ATORVASTATIN 20 MG TAB PO SCH (22:29)
[2022-06-25] VITALS (105 sets, daily range): BP systolic 93–127; BP diastolic 50–77
[2022-06-25] MEDS: VANCOMYCIN 1GM/250ML 250 ML IV SCH ×3 (02:59→22:30)
[2022-06-25] MEDS: MIDAZOLAM DRIP 50 mg/50mL 50 ML IV SCH ×4 (03:00→20:08)
[2022-06-25 04:15] LABS: Basophils # (auto) 0.1 10 ^3/uL (0-0.2); Eosinophils # (auto) 0.6 10 ^3/uL (0-0.8); Hemoglobin 9.9 g/dL (13.5-17.5); Monocytes # (auto) 1.4 10 ^3/uL (0-1.3)
[2022-06-25 04:18] LABS: Basophils % (auto) 0.8 % (0.0-2.0); Eosinophils % (auto) 3.7 % (0.0-7.0); Hematocrit 29.4 % (41.0-53.0); Lymphocytes # (auto) 1.6 10 ^3/uL (0.4-5.4); Mean Corpuscular Hgb Conc. 33.7 g/dL (32.0-36.0); Mean Corpuscular Volume 86.1 fL (80.0-100.0); Monocytes % (auto) 9.1 % (0.0-12.0); Neutrophils # (auto) 12.2 10 ^3/uL (1.6-8.6); Neutrophils % (auto) 76.4 % (37.0-80.0); Nucleated Red Blood Cells % 0.1 %; Red Blood Cells 3.41 10^6/uL (4.5-5.90); Red Cell Distribution Width 13.5 % (11.8-14.3); White Blood Cell 15.9 10^3/uL (4.4-10.8)
[2022-06-25 04:34] LABS: Calcium 8.5 mg/dL (8.5-10.1); Potassium 3.4 mmol/L (3.5-5.1)
[2022-06-25 04:39] LABS: Albumin 1.8 g/dL (3.4-5.0); Bilirubin, Total 0.5 mg/dL (0.2-1.0); Magnesium 2.1 mg/dL (1.6-2.6); Total Protein 6.2 g/dL (6.4-8.2)
[2022-06-25] MEDS: PROPOFOL 100 ML IV SCH ×6 (04:57→19:46)
[2022-06-25] MEDS: MEROPENEM 1GM IVPB 100 ML IV SCH ×2 (07:37→16:26)
[2022-06-25] MEDS ORDERED: POTASSIUM CHL 20MEQ/100ML 100 ML IV ONE ×2 (07:45→12:45)
[2022-06-25] MEDS: fentaNYL Drip 2500mCg/250mlNS 250 ML IV SCH ×2 (08:15→20:07)
[2022-06-25] MEDS: POTASSIUM EFFERVESENT TAB 25 MEQ GT SCH (09:54)
[2022-06-25] MEDS: LISINOPRIL 5 MG TAB PO SCH (10:00)
[2022-06-25] MEDS: TICAGRELOR 90 MG TAB PO SCH (10:00)
[2022-06-25] MEDS: AMIODARONE HCL 200 MG TAB GT SCH ×2 (10:05→22:35)
[2022-06-25] MEDS: ASPirin 81 mg TAB PO SCH (10:05)
[2022-06-25] MEDS: DOCUSATE ORAL LIQUID 100 MG/10 ML UD GT SCH (10:05)
[2022-06-25] MEDS: CARVEDILOL 3.125 MG TAB PO SCH ×2 (10:06→22:35)
[2022-06-25] MEDS: PANTOPRAZOLE 40 MG/10 ML VIAL INJ IV SCH ×2 (10:31→22:34)
[2022-06-25] MEDS: LEVOTHYROXINE SODIUM 100 MCG/5 ML INJ IV SCH (10:32)
[2022-06-25] MEDS: NOREPINEPHRINE 8 MG/250ML KIT 250 ML IV SCH (13:45)
[2022-06-25] MEDS ORDERED: FUROSEMIDE 40 MG/4 ML VIAL IV ONE (14:30)
[2022-06-25] MEDS: ATORVASTATIN 20 MG TAB PO SCH (22:34)
[2022-06-26] VITALS (97 sets, daily range): BP systolic 94–163; BP diastolic 53–103
[2022-06-26] MEDS: ACETAMINOPHEN 650 mg PER 20.3 mL UD GT PRN ×2 (00:04→14:52)
[2022-06-26] MEDS: MEROPENEM 1GM IVPB 100 ML IV SCH ×2 (00:05→09:10)
[2022-06-26 03:45] LABS: Basophils # (auto) 0.1 10 ^3/uL (0-0.2); Lymphocytes # (auto) 1.7 10 ^3/uL (0.4-5.4); Monocytes # (auto) 1.4 10 ^3/uL (0-1.3)
[2022-06-26 03:48] LABS: Basophils % (auto) 0.7 % (0.0-2.0); Eosinophils # (auto) 0.5 10 ^3/uL (0-0.8); Eosinophils % (auto) 3.3 % (0.0-7.0); Hematocrit 33.9 % (41.0-53.0); Hemoglobin 10.6 g/dL (13.5-17.5); Lymphocytes % (auto) 11.4 % (10.0-50.0); Mean Corpuscular Hemoglobin 27.2 pg (28.0-32.0); Mean Corpuscular Hgb Conc. 31.3 g/dL (32.0-36.0); Mean Corpuscular Volume 86.9 fL (80.0-100.0); Monocytes % (auto) 9.2 % (0.0-12.0); Neutrophils # (auto) 11.5 10 ^3/uL (1.6-8.6); Neutrophils % (auto) 75.4 % (37.0-80.0); Red Cell Distribution Width 13.3 % (11.8-14.3); White Blood Cell 15.3 10^3/uL (4.4-10.8)
[2022-06-26 03:58] LABS: Potassium 3.7 mmol/L (3.5-5.1)
[2022-06-26 04:01] LABS: BUN/Creatinine Ratio 26.5; Calcium 8.9 mg/dL (8.5-10.1); Magnesium 2.2 mg/dL (1.6-2.6)
[2022-06-26] MEDS: VANCOMYCIN 1GM/250ML 250 ML IV SCH (05:52)
[2022-06-26] MEDS: PROPOFOL 100 ML IV SCH ×3 (07:36→17:50)
[2022-06-26] MEDS: MIDAZOLAM DRIP 50 mg/50mL 50 ML IV SCH ×3 (08:55→20:39)
[2022-06-26] MEDS: fentaNYL Drip 2500mCg/250mlNS 250 ML IV SCH ×2 (09:00→20:32)
[2022-06-26] MEDS ORDERED: POTASSIUM CHL 20MEQ/100ML 100 ML IV SCH (10:00)
[2022-06-26] MEDS ORDERED: TPN PER PHARMACY 0 ML IV SCH (10:15)
[2022-06-26] MEDS ORDERED: DEXTROSE (50%) 50ML SYRG IV PRN (10:30)
[2022-06-26 10:39] LABS: INR 0.98 (0.9-1.15); Partial Thromboplastin Time 29.6 sec (24.6-33.4)
[2022-06-26 10:40] LABS: Albumin 1.8 g/dL (3.4-5.0); Calcium 8.8 mg/dL (8.5-10.1)
[2022-06-26 10:44] LABS: BUN/Creatinine Ratio 28.1; Bilirubin, Total 0.4 mg/dL (0.2-1.0); Phosphorus 3.5 mg/dL (2.5-4.90); Total Protein 6.2 g/dL (6.4-8.2)
[2022-06-26] MEDS: FUROSEMIDE 40 MG/4 ML VIAL IV SCH (11:37)
[2022-06-26] MEDS: PANTOPRAZOLE 40 MG/10 ML VIAL INJ IV SCH ×2 (11:37→22:05)
[2022-06-26] MEDS: LEVOTHYROXINE SODIUM 100 MCG/5 ML INJ IV SCH (11:38)
[2022-06-26] MEDS: ASPirin 81 mg TAB PO SCH (11:46)
[2022-06-26] MEDS: AMIODARONE HCL 200 MG TAB GT SCH ×2 (11:46→22:06)
[2022-06-26] MEDS: CLOPIDOGREL BISULFATE 75 MG TAB PO SCH (11:46)
[2022-06-26] MEDS: DOCUSATE ORAL LIQUID 100 MG/10 ML UD GT SCH (11:46)
[2022-06-26] MEDS ORDERED: LIDOCAINE 1% (LOCAL ANESTH.) PF 5ml SDV ID ONE (12:45)
[2022-06-26] MEDS: NOREPINEPHRINE 8 MG/250ML KIT 250 ML IV SCH (13:45)
[2022-06-26] MEDS: CEFEPIME 2 GM in SODIUM CHL 0.9% 50 ML IV SCH ×2 (15:00→22:07)
[2022-06-26] MEDS: ALBUTEROL MEDNEB 2.5 mg/3ml NEB NEB PRN (18:56)
[2022-06-26] MEDS: IPRATROPIUM BROM 0.5 MG/2.5ML INH SOL NEB PRN (18:56)
[2022-06-26] MEDS: TPN PER PHARMACY IV NR ×6 (20:00)
[2022-06-26] MEDS: SODIUM CHLOR 0.9% PF (SALINE LOCK) 10ML VIAL/SYR IV SCH (22:06)
[2022-06-26] MEDS: ATORVASTATIN 20 MG TAB PO SCH (22:06)
[2022-06-27] VITALS (103 sets, daily range): BP systolic 91–154; BP diastolic 48–86
[2022-06-27 03:59] LABS: Basophils # (auto) 0.1 10 ^3/uL (0-0.2); Nucleated Red Blood Cells % 0.1 %
[2022-06-27 04:00] LABS: Basophils % (auto) 0.5 % (0.0-2.0); Eosinophils # (auto) 0.5 10 ^3/uL (0-0.8); Eosinophils % (auto) 4.4 % (0.0-7.0); Hematocrit 30.4 % (41.0-53.0); Lymphocytes # (auto) 1.5 10 ^3/uL (0.4-5.4); Lymphocytes % (auto) 12.5 % (10.0-50.0); Mean Corpuscular Hemoglobin 28.6 pg (28.0-32.0); Mean Corpuscular Volume 86.6 fL (80.0-100.0); Monocytes # (auto) 1.1 10 ^3/uL (0-1.3); Neutrophils # (auto) 8.6 10 ^3/uL (1.6-8.6); Neutrophils % (auto) 73.6 % (37.0-80.0); Red Blood Cells 3.51 10^6/uL (4.5-5.90); Red Cell Distribution Width 13.3 % (11.8-14.3); White Blood Cell 11.7 10^3/uL (4.4-10.8)
[2022-06-27 04:07] LABS: Albumin 1.9 g/dL (3.4-5.0); Calcium 8.5 mg/dL (8.5-10.1); Magnesium 1.9 mg/dL (1.6-2.6); Potassium 4.1 mmol/L (3.5-5.1)
[2022-06-27 04:13] LABS: BUN/Creatinine Ratio 27.1; Bilirubin, Total 0.5 mg/dL (0.2-1.0); Phosphorus 3.6 mg/dL (2.5-4.90); Total Protein 5.4 g/dL (6.4-8.2)
[2022-06-27] MEDS: InsuLIN REG 1unit/0.01ml Soln (100units/ml) SC SCH ×4 (06:00→18:43)
[2022-06-27] MEDS: ACCU-CHEK COMFORT CURVE STRIP VI SCH ×5 (06:00→18:43)
[2022-06-27] MEDS: CEFEPIME 2 GM in SODIUM CHL 0.9% 50 ML IV SCH ×3 (07:00→21:37)
[2022-06-27] MEDS: fentaNYL Drip 2500mCg/250mlNS 250 ML IV SCH ×2 (07:55→18:29)
[2022-06-27] MEDS: PROPOFOL 100 ML IV SCH ×6 (09:14→23:20)
[2022-06-27] MEDS: DOCUSATE ORAL LIQUID 100 MG/10 ML UD GT SCH (10:00)
[2022-06-27] MEDS: FUROSEMIDE 40 MG/4 ML VIAL IV SCH (10:31)
[2022-06-27] MEDS: SODIUM CHLOR 0.9% PF (SALINE LOCK) 10ML VIAL/SYR IV SCH ×2 (10:32→21:32)
[2022-06-27] MEDS: CLOPIDOGREL BISULFATE 75 MG TAB PO SCH (10:32)
[2022-06-27] MEDS: AMIODARONE HCL 200 MG TAB GT SCH ×2 (10:32→21:37)
[2022-06-27] MEDS: ASPirin 81 mg TAB PO SCH (10:32)
[2022-06-27] MEDS: LEVOTHYROXINE SODIUM 100 MCG/5 ML INJ IV SCH (10:32)
[2022-06-27] MEDS: PANTOPRAZOLE 40 MG/10 ML VIAL INJ IV SCH ×2 (10:47→21:37)
[2022-06-27] MEDS: MIDAZOLAM DRIP 50 mg/50mL 50 ML IV SCH ×2 (12:28→18:25)
[2022-06-27] MEDS: NOREPINEPHRINE 8 MG/250ML KIT 250 ML IV SCH (13:45)
[2022-06-27] MEDS ORDERED: MAGNESIUM OXIDE 400 MG TAB GT ONE (15:45)
[2022-06-27] MEDS ORDERED: MAGNESIUM SULFATE 1GM/100ML 100 ML IV ONE (18:30)
[2022-06-27] MEDS ORDERED: TPN PER PHARMACY IV NR ×8 (20:00)
[2022-06-27] MEDS: TPN PER PHARMACY IV NR ×6 (20:09)
[2022-06-27] MEDS: ATORVASTATIN 20 MG TAB PO SCH (21:37)
[2022-06-28] VITALS (105 sets, daily range): BP systolic 108–175; BP diastolic 53–96
[2022-06-28] MEDS: ACCU-CHEK COMFORT CURVE STRIP VI SCH ×5 (00:08→23:21)
[2022-06-28] MEDS: MIDAZOLAM DRIP 50 mg/50mL 50 ML IV SCH ×5 (00:40→22:46)
[2022-06-28] MEDS: PROPOFOL 100 ML IV SCH (03:00)
[2022-06-28 03:40] LABS: Hemoglobin 10.1 g/dL (13.5-17.5); Lymphocytes # (auto) 1.2 10 ^3/uL (0.4-5.4)
[2022-06-28 03:43] LABS: Basophils # (auto) 0.1 10 ^3/uL (0-0.2); Eosinophils # (auto) 0.8 10 ^3/uL (0-0.8); Eosinophils % (auto) 7.2 % (0.0-7.0); Hematocrit 30.8 % (41.0-53.0); Mean Corpuscular Hemoglobin 28.2 pg (28.0-32.0); Mean Corpuscular Hgb Conc. 32.7 g/dL (32.0-36.0); Mean Corpuscular Volume 86.4 fL (80.0-100.0); Monocytes # (auto) 1.2 10 ^3/uL (0-1.3); Monocytes % (auto) 10.6 % (0.0-12.0); Neutrophils % (auto) 70.2 % (37.0-80.0); Red Blood Cells 3.57 10^6/uL (4.5-5.90); Red Cell Distribution Width 13.3 % (11.8-14.3); White Blood Cell 11.3 10^3/uL (4.4-10.8)
[2022-06-28 04:01] LABS: Potassium 3.4 mmol/L (3.5-5.1)
[2022-06-28 04:06] LABS: Albumin 1.8 g/dL (3.4-5.0); BUN/Creatinine Ratio 31.3; Bilirubin, Total 0.3 mg/dL (0.2-1.0); Calcium 8.6 mg/dL (8.5-10.1); Magnesium 2.4 mg/dL (1.6-2.6); Phosphorus 2.8 mg/dL (2.5-4.90); Total Protein 6.3 g/dL (6.4-8.2)
[2022-06-28] MEDS: InsuLIN REG 1unit/0.01ml Soln (100units/ml) SC SCH ×5 (05:44→23:21)
[2022-06-28] MEDS: fentaNYL Drip 2500mCg/250mlNS 250 ML IV SCH (05:45)
[2022-06-28] MEDS: CEFEPIME 2 GM in SODIUM CHL 0.9% 50 ML IV SCH ×3 (05:48→22:13)
[2022-06-28] MEDS ORDERED: LIDOCAINE 2% JELLY 11ml (GLYDO) ONE (08:42)
[2022-06-28] MEDS ORDERED: EPINEPHrine HCL 1 MG/1 ML AMP ONE (08:43)
[2022-06-28] MEDS ORDERED: POTASSIUM CHL 20MEQ/100ML 100 ML IV ONE (09:00)
[2022-06-28] MEDS ORDERED: fentaNYL CITRATE 100 MCG/2 ML VL ONE (09:23)
[2022-06-28] MEDS ORDERED: MIDAZOLAM HCL 2MG/2ML 2ml VIAL (1mg/ml) ONE (09:23)
[2022-06-28] MEDS: LEVOTHYROXINE SODIUM 100 MCG/5 ML INJ IV SCH (09:24)
[2022-06-28] MEDS: FUROSEMIDE 40 MG/4 ML VIAL IV SCH (09:24)
[2022-06-28] MEDS: PANTOPRAZOLE 40 MG/10 ML VIAL INJ IV SCH ×2 (09:24→22:13)
[2022-06-28] MEDS: SODIUM CHLOR 0.9% PF (SALINE LOCK) 10ML VIAL/SYR IV SCH ×2 (09:28→22:15)
[2022-06-28] MEDS: DOCUSATE ORAL LIQUID 100 MG/10 ML UD GT SCH ×2 (10:00→13:58)
[2022-06-28] MEDS ORDERED: LIDOCAINE 2%HCL (LOCAL ANESTH.) INJ 20ML MDV ONE (10:55)
[2022-06-28] MEDS ORDERED: GLYCOPYRROLATE 0.2 MG/ML 1ML VIAL ONE (10:56)
[2022-06-28] MEDS: ACETAMINOPHEN 650 mg PER 20.3 mL UD GT PRN (13:33)
[2022-06-28] MEDS: NOREPINEPHRINE 8 MG/250ML KIT 250 ML IV SCH (13:45)
[2022-06-28] MEDS ORDERED: CARVEDILOL 3.125 MG TAB PO ONE (14:00)
[2022-06-28] MEDS ORDERED: LISINOPRIL 5 MG TAB PO ONE (14:00)
[2022-06-28] MEDS: CLOPIDOGREL BISULFATE 75 MG TAB PO SCH (14:05)
[2022-06-28] MEDS: AMIODARONE HCL 200 MG TAB GT SCH ×2 (14:05→22:15)
[2022-06-28] MEDS: ASPirin 81 mg TAB PO SCH (14:05)
[2022-06-28] MEDS: hydrALAZINE HCL 20 MG/ML VL IV PRN (18:06)
[2022-06-28] MEDS ORDERED: TPN PER PHARMACY IV NR ×8 (20:00)
[2022-06-28] MEDS: CARVEDILOL 3.125 MG TAB PO SCH (22:14)
[2022-06-28] MEDS: ATORVASTATIN 20 MG TAB PO SCH (22:15)
[2022-06-29] VITALS (105 sets, daily range): BP systolic 87–129; BP diastolic 48–76
[2022-06-29] MEDS: MIDAZOLAM DRIP 50 mg/50mL 50 ML IV SCH ×5 (02:36→23:51)
[2022-06-29] MEDS: PROPOFOL 100 ML IV SCH ×5 (03:16→23:51)
[2022-06-29 03:31] LABS: Mean Corpuscular Hemoglobin 28.4 pg (28.0-32.0); Mean Corpuscular Hgb Conc. 32.6 g/dL (32.0-36.0)
[2022-06-29 03:33] LABS: Hematocrit 31.4 % (41.0-53.0); Hemoglobin 10.3 g/dL (13.5-17.5); Red Blood Cells 3.61 10^6/uL (4.5-5.90); Red Cell Distribution Width 13.6 % (11.8-14.3); White Blood Cell 12.4 10^3/uL (4.4-10.8)
[2022-06-29 03:43] LABS: Basophils % (manual) 0 (0.0-2.0); Blast Cells 0; Eosinophils % (manual) 0 (0-7); Metamyelocytes % 0; Promyelocytes % 0; Reactive Lymphocytes 0
[2022-06-29 03:51] LABS: Albumin 1.8 g/dL (3.4-5.0); Calcium 8.5 mg/dL (8.5-10.1); Magnesium 2.3 mg/dL (1.6-2.6); Potassium 3.5 mmol/L (3.5-5.1)
[2022-06-29 03:53] LABS: BUN/Creatinine Ratio 32.4; Bilirubin, Total 0.3 mg/dL (0.2-1.0); Phosphorus 3.4 mg/dL (2.5-4.90); Total Protein 6.2 g/dL (6.4-8.2)
[2022-06-29 04:22] LABS: Band Neutrophils % (manual) 8; Lymphocytes % (manual) 16 (10.0-50.0); Monocytes % (manual) 10 (0-12); Myelocytes % 1
[2022-06-29] MEDS: InsuLIN REG 1unit/0.01ml Soln (100units/ml) SC SCH ×4 (06:00→23:54)
[2022-06-29] MEDS: ACCU-CHEK COMFORT CURVE STRIP VI SCH ×4 (06:05→23:52)
[2022-06-29] MEDS: CEFEPIME 2 GM in SODIUM CHL 0.9% 50 ML IV SCH ×3 (06:15→22:00)
[2022-06-29] MEDS: fentaNYL Drip 2500mCg/250mlNS 250 ML IV SCH ×2 (06:35→18:39)
[2022-06-29] MEDS: IPRATROPIUM BROM 0.5 MG/2.5ML INH SOL NEB PRN ×2 (08:23→13:47)
[2022-06-29] MEDS: ALBUTEROL MEDNEB 2.5 mg/3ml NEB NEB PRN ×2 (08:23→13:47)
[2022-06-29] MEDS ORDERED: POTASSIUM CHL 20MEQ/100ML 100 ML IV ONE (09:00)
[2022-06-29] MEDS: PANTOPRAZOLE 40 MG/10 ML VIAL INJ IV SCH ×2 (09:37→22:34)
[2022-06-29] MEDS: AMIODARONE HCL 200 MG TAB GT SCH ×2 (09:38→22:34)
[2022-06-29] MEDS: FUROSEMIDE 40 MG/4 ML VIAL IV SCH (09:38)
[2022-06-29] MEDS: LEVOTHYROXINE SODIUM 100 MCG/5 ML INJ IV SCH (09:38)
[2022-06-29] MEDS: CLOPIDOGREL BISULFATE 75 MG TAB PO SCH (09:39)
[2022-06-29] MEDS: ASPirin 81 mg TAB PO SCH (09:39)
[2022-06-29] MEDS: CARVEDILOL 3.125 MG TAB PO SCH ×2 (09:40→22:00)
[2022-06-29] MEDS: SODIUM CHLOR 0.9% PF (SALINE LOCK) 10ML VIAL/SYR IV SCH ×2 (09:41→22:34)
[2022-06-29] MEDS: DOCUSATE ORAL LIQUID 100 MG/10 ML UD GT SCH (10:00)
[2022-06-29] MEDS ORDERED: LISINOPRIL 5 MG TAB PO SCH (10:00)
[2022-06-29] MEDS: NOREPINEPHRINE 8 MG/250ML KIT 250 ML IV SCH ×2 (13:45→19:41)
[2022-06-29] MEDS ORDERED: TPN PER PHARMACY IV NR ×8 (20:00)
[2022-06-29] MEDS ORDERED: FUROSEMIDE 40 MG/4 ML VIAL IV SCH (22:00)
[2022-06-29] MEDS: ATORVASTATIN 20 MG TAB PO SCH (22:33)
[2022-06-30] VITALS (104 sets, daily range): BP systolic 84–154; BP diastolic 41–85
[2022-06-30 03:56] LABS: Mean Corpuscular Volume 88.5 fL (80.0-100.0); Red Cell Distribution Width 14.1 % (11.8-14.3)
[2022-06-30 04:01] LABS: Hematocrit 34.7 % (41.0-53.0); Hemoglobin 11.2 g/dL (13.5-17.5); Mean Corpuscular Hemoglobin 28.5 pg (28.0-32.0); Mean Corpuscular Hgb Conc. 32.2 g/dL (32.0-36.0); Red Blood Cells 3.92 10^6/uL (4.5-5.90); White Blood Cell 16.5 10^3/uL (4.4-10.8)
[2022-06-30 04:14] LABS: Albumin 2.1 g/dL (3.4-5.0); Calcium 9.1 mg/dL (8.5-10.1); Magnesium 2.4 mg/dL (1.6-2.6); Potassium 4.6 mmol/L (3.5-5.1)
[2022-06-30 04:19] LABS: BUN/Creatinine Ratio 26.4; Bilirubin, Total 0.3 mg/dL (0.2-1.0); Phosphorus 6.4 mg/dL (2.5-4.90)
[2022-06-30 04:21] LABS: Basophils % (manual) 0 (0.0-2.0); Blast Cells 0; Metamyelocytes % 0; Promyelocytes % 0; Reactive Lymphocytes 0
[2022-06-30] MEDS: InsuLIN REG 1unit/0.01ml Soln (100units/ml) SC SCH ×4 (06:00→17:43)
[2022-06-30] MEDS: ACCU-CHEK COMFORT CURVE STRIP VI SCH ×3 (06:00→17:43)
[2022-06-30] MEDS: CEFEPIME 2 GM in SODIUM CHL 0.9% 50 ML IV SCH ×3 (06:47→21:18)
[2022-06-30 07:09] LABS: Band Neutrophils % (manual) 7; Eosinophils % (manual) 4 (0-7); Lymphocytes % (manual) 20 (10.0-50.0); Monocytes % (manual) 13 (0-12); Myelocytes % 3
[2022-06-30] MEDS: MIDAZOLAM DRIP 50 mg/50mL 50 ML IV SCH ×2 (09:47→22:48)
[2022-06-30] MEDS: CARVEDILOL 3.125 MG TAB PO SCH ×2 (10:00→21:19)
[2022-06-30] MEDS: AMIODARONE HCL 200 MG TAB GT SCH ×2 (10:00→21:18)
[2022-06-30] MEDS: DOCUSATE ORAL LIQUID 100 MG/10 ML UD GT SCH (10:00)
[2022-06-30] MEDS: ASPirin 81 mg TAB PO SCH (10:00)
[2022-06-30] MEDS: CLOPIDOGREL BISULFATE 75 MG TAB PO SCH (10:00)
[2022-06-30] MEDS: LEVOTHYROXINE SODIUM 100 MCG/5 ML INJ IV SCH (11:01)
[2022-06-30] MEDS: PANTOPRAZOLE 40 MG/10 ML VIAL INJ IV SCH ×2 (11:02→21:18)
[2022-06-30] MEDS: SODIUM CHLOR 0.9% PF (SALINE LOCK) 10ML VIAL/SYR IV SCH ×2 (11:04→21:18)
[2022-06-30] MEDS ORDERED: ENOXAPARIN SOD 30 MG/0.3 ML SYRINGE SC ONE (11:15)
[2022-06-30] MEDS: PROPOFOL 100 ML IV SCH ×2 (11:49→17:28)
[2022-06-30] MEDS: SODIUM CHLORIDE 0.9% 1,000 ML IV SCH (11:51)
[2022-06-30] MEDS ORDERED: ALBUMIN 25% 100 ML IV ONE (13:30)
[2022-06-30] MEDS: fentaNYL Drip 2500mCg/250mlNS 250 ML IV SCH (17:29)
[2022-06-30 17:42] LABS: Sodium Urine 10 mmol/L (40-220)
[2022-06-30 17:44] LABS: Creatinine, Urine 54 mg/dL (30.0-125.0)
[2022-06-30 17:45] LABS: Protein, Urine 53.1 mg/dL (0.0-11.9)
[2022-06-30 17:54] LABS: Urine Bacteria FEW /hpf (None Seen); Urine Blood 2+ /uL (Negative); Urine Mucus FEW (None Seen); Urine Specific Gravity 1.013 (1.001-1.035); Urine WBC 12 /hpf (0 - 3)
[2022-06-30] MEDS ORDERED: TPN PER PHARMACY IV NR ×7 (20:00)
[2022-06-30] MEDS: ATORVASTATIN 20 MG TAB PO SCH (21:19)
[2022-07-01] VITALS (107 sets, daily range): BP systolic 88–142; BP diastolic 39–81
[2022-07-01] MEDS: MIDAZOLAM DRIP 50 mg/50mL 50 ML IV SCH ×3 (02:46→22:28)
[2022-07-01] MEDS: PROPOFOL 100 ML IV SCH ×3 (02:47→22:28)
[2022-07-01 04:18] LABS: Albumin 2.2 g/dL (3.4-5.0); BUN/Creatinine Ratio 25.3; Calcium 9.3 mg/dL (8.5-10.1); Magnesium 2.2 mg/dL (1.6-2.6); Potassium 4.1 mmol/L (3.5-5.1)
[2022-07-01 04:21] LABS: Bilirubin, Total 0.3 mg/dL (0.2-1.0); Phosphorus 5.9 mg/dL (2.5-4.90); Total Protein 6.6 g/dL (6.4-8.2)
[2022-07-01] MEDS ORDERED: ALBUMIN 25% 100 ML IV ONE (05:00)
[2022-07-01] MEDS: ACCU-CHEK COMFORT CURVE STRIP VI SCH ×4 (05:50→18:05)
[2022-07-01] MEDS: InsuLIN REG 1unit/0.01ml Soln (100units/ml) SC SCH ×3 (05:50→18:00)
[2022-07-01] MEDS: SODIUM CHLORIDE 0.9% 1,000 ML IV SCH ×2 (06:05→15:30)
[2022-07-01] MEDS: CEFEPIME 2 GM in SODIUM CHL 0.9% 50 ML IV SCH ×3 (06:06→22:28)
[2022-07-01 08:17] LABS: Hematocrit 28.9 % (41.0-53.0); Hemoglobin 9.5 g/dL (13.5-17.5); Mean Corpuscular Hemoglobin 28.7 pg (28.0-32.0); Mean Corpuscular Volume 87.1 fL (80.0-100.0); Red Blood Cells 3.32 10^6/uL (4.5-5.90); Red Cell Distribution Width 13.9 % (11.8-14.3); White Blood Cell 14.8 10^3/uL (4.4-10.8)
[2022-07-01 08:26] LABS: Band Neutrophils % (manual) 0; Basophils % (manual) 0 (0.0-2.0); Blast Cells 0; Metamyelocytes % 0; Myelocytes % 0; Promyelocytes % 0; Reactive Lymphocytes 0
[2022-07-01 09:35] LABS: Eosinophils % (manual) 5 (0-7); Lymphocytes % (manual) 11 (10.0-50.0); Monocytes % (manual) 12 (0-12)
[2022-07-01] MEDS: CARVEDILOL 3.125 MG TAB PO SCH ×2 (10:00→22:30)
[2022-07-01] MEDS: PANTOPRAZOLE 40 MG/10 ML VIAL INJ IV SCH ×2 (10:05→22:28)
[2022-07-01] MEDS: ENOXAPARIN SOD 30 MG/0.3 ML SYRINGE SC SCH (10:05)
[2022-07-01] MEDS: DOCUSATE ORAL LIQUID 100 MG/10 ML UD GT SCH (10:05)
[2022-07-01] MEDS: ASPirin 81 mg TAB PO SCH (10:06)
[2022-07-01] MEDS: CLOPIDOGREL BISULFATE 75 MG TAB PO SCH (10:06)
[2022-07-01] MEDS: LEVOTHYROXINE SODIUM 100 MCG/5 ML INJ IV SCH (10:10)
[2022-07-01] MEDS: AMIODARONE HCL 200 MG TAB GT SCH ×2 (10:10→22:27)
[2022-07-01] MEDS: SODIUM CHLOR 0.9% PF (SALINE LOCK) 10ML VIAL/SYR IV SCH ×2 (10:19→22:29)
[2022-07-01] MEDS: NOREPINEPHRINE 8 MG/250ML KIT 250 ML IV SCH (13:45)
[2022-07-01] MEDS: fentaNYL Drip 2500mCg/250mlNS 250 ML IV SCH (18:13)
[2022-07-01] MEDS ORDERED: TPN PER PHARMACY IV NR ×6 (20:00)
[2022-07-01] MEDS: ATORVASTATIN 20 MG TAB PO SCH (22:30)
[2022-07-02] VITALS (105 sets, daily range): BP systolic 89–108; BP diastolic 42–67
[2022-07-02] MEDS: ACCU-CHEK COMFORT CURVE STRIP VI SCH ×4 (00:17→17:28)
[2022-07-02] MEDS: PROPOFOL 100 ML IV SCH ×7 (01:50→22:24)
[2022-07-02] MEDS: MIDAZOLAM DRIP 50 mg/50mL 50 ML IV SCH ×7 (01:50→22:24)
[2022-07-02 03:47] LABS: Hemoglobin 9.9 g/dL (13.5-17.5); Mean Corpuscular Volume 87.6 fL (80.0-100.0); White Blood Cell 13.3 10^3/uL (4.4-10.8)
[2022-07-02 03:51] LABS: Hematocrit 30.2 % (41.0-53.0); Mean Corpuscular Hemoglobin 28.7 pg (28.0-32.0); Mean Corpuscular Hgb Conc. 32.8 g/dL (32.0-36.0); Red Blood Cells 3.45 10^6/uL (4.5-5.90); Red Cell Distribution Width 14.1 % (11.8-14.3)
[2022-07-02 03:58] LABS: Basophils % (manual) 0 (0.0-2.0); Blast Cells 0; Eosinophils % (manual) 0 (0-7); Metamyelocytes % 0; Myelocytes % 0; Promyelocytes % 0; Reactive Lymphocytes 0
[2022-07-02 04:07] LABS: Albumin 2.1 g/dL (3.4-5.0); Calcium 8.9 mg/dL (8.5-10.1); Magnesium 2.5 mg/dL (1.6-2.6); Potassium 4.3 mmol/L (3.5-5.1)
[2022-07-02 04:11] LABS: BUN/Creatinine Ratio 22.8; Bilirubin, Total 0.4 mg/dL (0.2-1.0); Phosphorus 7.2 mg/dL (2.5-4.90); Total Protein 5.1 g/dL (6.4-8.2)
[2022-07-02 05:58] LABS: Band Neutrophils % (manual) 1; Lymphocytes % (manual) 4 (10.0-50.0); Monocytes % (manual) 17 (0-12)
[2022-07-02] MEDS: InsuLIN REG 1unit/0.01ml Soln (100units/ml) SC SCH ×4 (06:00→17:27)
[2022-07-02] MEDS: CEFEPIME 2 GM in SODIUM CHL 0.9% 50 ML IV SCH ×2 (06:08→22:24)
[2022-07-02] MEDS: ENOXAPARIN SOD 30 MG/0.3 ML SYRINGE SC SCH (09:36)
[2022-07-02] MEDS: ASPirin 81 mg TAB PO SCH (09:36)
[2022-07-02] MEDS: ALBUMIN 25% 100 ML IV SCH ×2 (09:36→17:00)
[2022-07-02] MEDS: LEVOTHYROXINE SODIUM 100 MCG/5 ML INJ IV SCH (09:36)
[2022-07-02] MEDS: DOCUSATE ORAL LIQUID 100 MG/10 ML UD GT SCH (09:36)
[2022-07-02] MEDS: AMIODARONE HCL 200 MG TAB GT SCH ×2 (09:37→22:24)
[2022-07-02] MEDS: CLOPIDOGREL BISULFATE 75 MG TAB PO SCH (09:37)
[2022-07-02] MEDS: SODIUM CHLOR 0.9% PF (SALINE LOCK) 10ML VIAL/SYR IV SCH ×2 (09:37→22:26)
[2022-07-02] MEDS: PANTOPRAZOLE 40 MG/10 ML VIAL INJ IV SCH ×2 (09:37→22:26)
[2022-07-02] MEDS ORDERED: FUROSEMIDE 40 MG/4 ML VIAL IV ONE (10:30)
[2022-07-02] MEDS: NOREPINEPHRINE 8 MG/250ML KIT 250 ML IV SCH (11:13)
[2022-07-02] MEDS: CARVEDILOL 3.125 MG TAB PO SCH ×2 (11:52→22:28)
[2022-07-02] MEDS: SODIUM CHLORIDE 0.9% 1,000 ML IV SCH (12:15)
[2022-07-02] MEDS ORDERED: FUROSEMIDE 40 MG/4 ML VIAL IV SCH (18:00)
[2022-07-02] MEDS: fentaNYL Drip 2500mCg/250mlNS 250 ML IV SCH (18:11)
[2022-07-02] MEDS ORDERED: TPN PER PHARMACY IV NR ×5 (20:00)
[2022-07-02] MEDS ORDERED: FUROSEMIDE 100 MG/10ML VIAL IV ONE (20:15)
[2022-07-02] MEDS: ATORVASTATIN 20 MG TAB PO SCH (22:28)
[2022-07-03] VITALS (98 sets, daily range): BP systolic 91–165; BP diastolic 43–80
[2022-07-03] MEDS: PROPOFOL 100 ML IV SCH ×6 (01:50→21:29)
[2022-07-03] MEDS: MIDAZOLAM DRIP 50 mg/50mL 50 ML IV SCH ×5 (01:50→20:59)
[2022-07-03 03:56] LABS: Red Cell Distribution Width 14.1 % (11.8-14.3)
[2022-07-03 03:59] LABS: Hematocrit 26.6 % (41.0-53.0); Hemoglobin 8.4 g/dL (13.5-17.5); Mean Corpuscular Hemoglobin 28.4 pg (28.0-32.0); Mean Corpuscular Hgb Conc. 31.7 g/dL (32.0-36.0); Mean Corpuscular Volume 89.6 fL (80.0-100.0); Red Blood Cells 2.97 10^6/uL (4.5-5.90); White Blood Cell 12.2 10^3/uL (4.4-10.8)
[2022-07-03 04:04] LABS: Basophils % (manual) 0 (0.0-2.0); Blast Cells 0; Eosinophils % (manual) 0 (0-7); Metamyelocytes % 0; Myelocytes % 0; Promyelocytes % 0; Reactive Lymphocytes 0
[2022-07-03 04:07] LABS: INR 1.08 (0.9-1.15); Partial Thromboplastin Time 33.7 sec (24.6-33.4)
[2022-07-03 04:36] LABS: BUN/Creatinine Ratio 20.3; Calcium 9.5 mg/dL (8.5-10.1); Magnesium 2.4 mg/dL (1.6-2.6)
[2022-07-03 04:39] LABS: Bilirubin, Total 0.4 mg/dL (0.2-1.0)
[2022-07-03 05:11] LABS: Band Neutrophils % (manual) 6; Lymphocytes % (manual) 16 (10.0-50.0); Monocytes % (manual) 11 (0-12)
[2022-07-03] MEDS: ALBUMIN 25% 100 ML IV SCH (05:32)
[2022-07-03] MEDS: InsuLIN REG 1unit/0.01ml Soln (100units/ml) SC SCH ×5 (06:00→23:43)
[2022-07-03] MEDS: ACCU-CHEK COMFORT CURVE STRIP VI SCH ×5 (06:00→23:42)
[2022-07-03] MEDS: FUROSEMIDE 100 MG/10ML VIAL IV SCH ×2 (06:49→20:03)
[2022-07-03] MEDS: fentaNYL Drip 2500mCg/250mlNS 250 ML IV SCH (08:00)
[2022-07-03] MEDS ORDERED: SODIUM CHLORIDE LOCK 30 ML ONE (08:37)
[2022-07-03] MEDS ORDERED: MIDAZOLAM HCL 2MG/2ML 2ml VIAL (1mg/ml) ONE (08:37)
[2022-07-03] MEDS ORDERED: DexAMETHasone SOD PHOS 10MG/1ML VIAL INJ ONE (08:37)
[2022-07-03] MEDS ORDERED: fentaNYL CITRATE 5 ML ONE (08:37)
[2022-07-03] MEDS ORDERED: HYDROmorphone HCL 2 MG/ML VL/or syr ONE (08:37)
[2022-07-03] MEDS ORDERED: ETOMIDATE (2MG/ML) 20ML VIAL IV ONE (08:37)
[2022-07-03] MEDS ORDERED: ROCURONIUM 10MG/ML 10ML VIAL IV ONE (08:37)
[2022-07-03] MEDS ORDERED: LIDOCAINE 1%HCL (LOCAL ANESTH) 10 ML MDV ONE (09:15)
[2022-07-03] MEDS ORDERED: LIDOCAINE W/ EPINEPHRINE 1% 20ML VIAL ONE (09:59)
[2022-07-03] MEDS: ENOXAPARIN SOD 30 MG/0.3 ML SYRINGE SC SCH (10:00)
[2022-07-03] MEDS: DOCUSATE ORAL LIQUID 100 MG/10 ML UD GT SCH (12:15)
[2022-07-03] MEDS: SODIUM CHLORIDE 0.9% 1,000 ML IV SCH (12:15)
[2022-07-03] MEDS: SODIUM CHLOR 0.9% PF (SALINE LOCK) 10ML VIAL/SYR IV SCH ×2 (12:41→21:30)
[2022-07-03] MEDS: PANTOPRAZOLE 40 MG/10 ML VIAL INJ IV SCH ×2 (13:02→21:30)
[2022-07-03] MEDS: LEVOTHYROXINE SODIUM 100 MCG/5 ML INJ IV SCH (13:03)
[2022-07-03] MEDS: CEFEPIME 2 GM in SODIUM CHL 0.9% 50 ML IV SCH (13:03)
[2022-07-03] MEDS: AMIODARONE HCL 200 MG TAB GT SCH ×2 (13:03→21:31)
[2022-07-03] MEDS: ASPirin 81 mg TAB PO SCH (13:04)
[2022-07-03] MEDS: CARVEDILOL 3.125 MG TAB PO SCH ×2 (13:04→21:30)
[2022-07-03] MEDS: CLOPIDOGREL BISULFATE 75 MG TAB PO SCH (13:04)
[2022-07-03] MEDS: ALBUMIN 25% 100 ML IV PRN (18:52)
[2022-07-03] MEDS ORDERED: TPN PER PHARMACY IV NR ×5 (20:00)
[2022-07-03] MEDS: cefTRIAXone 1GM/50ML D5W 50 ML IV SCH (20:58)
[2022-07-03] MEDS: ATORVASTATIN 20 MG TAB PO SCH (21:30)
[2022-07-04] VITALS (106 sets, daily range): BP systolic 94–151; BP diastolic 48–75
[2022-07-04] MEDS: PROPOFOL 100 ML IV SCH ×7 (01:19→23:56)
[2022-07-04] MEDS: SODIUM CHLORIDE 0.9% 1,000 ML IV SCH ×2 (03:49→16:32)
[2022-07-04] MEDS: MIDAZOLAM DRIP 50 mg/50mL 50 ML IV SCH ×3 (03:50→16:01)
[2022-07-04 04:01] LABS: Hemoglobin 8.1 g/dL (13.5-17.5)
[2022-07-04 04:03] LABS: Hematocrit 24.3 % (41.0-53.0); Mean Corpuscular Hgb Conc. 33.4 g/dL (32.0-36.0); Mean Corpuscular Volume 86.8 fL (80.0-100.0); Red Cell Distribution Width 13.8 % (11.8-14.3); White Blood Cell 12.4 10^3/uL (4.4-10.8)
[2022-07-04 04:10] LABS: Basophils % (manual) 0 (0.0-2.0); Blast Cells 0; Metamyelocytes % 0; Promyelocytes % 0
[2022-07-04 04:23] LABS: Albumin 2.1 g/dL (3.4-5.0); Calcium 8.8 mg/dL (8.5-10.1); Magnesium 2.2 mg/dL (1.6-2.6); Potassium 3.7 mmol/L (3.5-5.1)
[2022-07-04 04:28] LABS: BUN/Creatinine Ratio 18.3; Bilirubin, Total 0.5 mg/dL (0.2-1.0); Total Protein 5.1 g/dL (6.4-8.2)
[2022-07-04] MEDS: FUROSEMIDE 100 MG/10ML VIAL IV SCH ×2 (05:51→19:47)
[2022-07-04] MEDS: ACCU-CHEK COMFORT CURVE STRIP VI SCH ×4 (05:52→23:36)
[2022-07-04] MEDS: InsuLIN REG 1unit/0.01ml Soln (100units/ml) SC SCH ×4 (05:52→23:36)
[2022-07-04] MEDS: fentaNYL Drip 2500mCg/250mlNS 250 ML IV SCH ×2 (05:56→16:07)
[2022-07-04] MEDS ORDERED: SODIUM CHL 0.9% 1000 ML BAG XX ONE ×2 (07:00→16:15)
[2022-07-04 07:05] LABS: Band Neutrophils % (manual) 1; Eosinophils % (manual) 5 (0-7); Lymphocytes % (manual) 10 (10.0-50.0); Monocytes % (manual) 10 (0-12); Myelocytes % 1; Reactive Lymphocytes 2
[2022-07-04] MEDS ORDERED: DOCUSATE ORAL LIQUID 100 MG/10 ML UD NG PRN (07:30)
[2022-07-04] MEDS: cefTRIAXone 1GM/50ML D5W 50 ML IV SCH (08:32)
[2022-07-04] MEDS: PANTOPRAZOLE 40 MG/10 ML VIAL INJ IV SCH ×2 (08:33→21:47)
[2022-07-04] MEDS: LEVOTHYROXINE SODIUM 100 MCG/5 ML INJ IV SCH (08:33)
[2022-07-04] MEDS: CARVEDILOL 3.125 MG TAB PO SCH ×2 (08:34→21:48)
[2022-07-04] MEDS: ENOXAPARIN SOD 30 MG/0.3 ML SYRINGE SC SCH (08:35)
[2022-07-04] MEDS: CLOPIDOGREL BISULFATE 75 MG TAB PO SCH (08:35)
[2022-07-04] MEDS: ASPirin 81 mg TAB PO SCH (08:35)
[2022-07-04] MEDS: AMIODARONE HCL 200 MG TAB GT SCH ×2 (08:35→21:48)
[2022-07-04] MEDS: NOREPINEPHRINE 8 MG/250ML KIT 250 ML IV SCH (08:38)
[2022-07-04] MEDS ORDERED: CEFEPIME 2 GM in SODIUM CHL 0.9% 50 ML IV SCH (10:00)
[2022-07-04] MEDS: SODIUM CHLOR 0.9% PF (SALINE LOCK) 10ML VIAL/SYR IV SCH ×2 (12:11→21:47)
[2022-07-04] MEDS: ALBUMIN 25% 100 ML IV PRN (17:20)
[2022-07-04] MEDS ORDERED: TPN PER PHARMACY IV NR ×9 (20:00)
[2022-07-04] MEDS ORDERED: EPOETIN ALFA-EPBX 4,000 UNIT/ML VIAL SC ONE ×2 (21:00)
[2022-07-04] MEDS: ATORVASTATIN 20 MG TAB PO SCH (21:47)
[2022-07-05] VITALS (91 sets, daily range): BP systolic 111–143; BP diastolic 47–70
[2022-07-05] MEDS: fentaNYL Drip 2500mCg/250mlNS 250 ML IV SCH ×2 (03:09→15:56)
[2022-07-05 03:52] LABS: Mean Corpuscular Hgb Conc. 32.9 g/dL (32.0-36.0)
[2022-07-05 03:54] LABS: Hematocrit 23.6 % (41.0-53.0); Hemoglobin 7.8 g/dL (13.5-17.5); Mean Corpuscular Hemoglobin 28.7 pg (28.0-32.0); Red Blood Cells 2.71 10^6/uL (4.5-5.90); Red Cell Distribution Width 14.5 % (11.8-14.3); White Blood Cell 12.4 10^3/uL (4.4-10.8)
[2022-07-05 04:03] LABS: Basophils % (manual) 0 (0.0-2.0); Blast Cells 0; Promyelocytes % 0; Reactive Lymphocytes 0
[2022-07-05 04:10] LABS: Albumin 2.1 g/dL (3.4-5.0); BUN/Creatinine Ratio 15.4; Calcium 8.9 mg/dL (8.5-10.1); Magnesium 2.1 mg/dL (1.6-2.6); Potassium 3.5 mmol/L (3.5-5.1)
[2022-07-05] MEDS: MIDAZOLAM DRIP 50 mg/50mL 50 ML IV SCH ×3 (04:10→22:29)
[2022-07-05] MEDS: PROPOFOL 100 ML IV SCH ×6 (04:10→21:52)
[2022-07-05 04:12] LABS: Bilirubin, Total 0.4 mg/dL (0.2-1.0); Phosphorus 3.6 mg/dL (2.5-4.90); Total Protein 5.2 g/dL (6.4-8.2)
[2022-07-05 05:32] LABS: Band Neutrophils % (manual) 6; Eosinophils % (manual) 7 (0-7); Lymphocytes % (manual) 11 (10.0-50.0); Metamyelocytes % 1; Monocytes % (manual) 7 (0-12); Myelocytes % 3
[2022-07-05] MEDS: FUROSEMIDE 100 MG/10ML VIAL IV SCH ×2 (05:50→18:09)
[2022-07-05] MEDS: InsuLIN REG 1unit/0.01ml Soln (100units/ml) SC SCH ×4 (05:51→23:46)
[2022-07-05] MEDS: ACCU-CHEK COMFORT CURVE STRIP VI SCH ×4 (05:51→23:45)
[2022-07-05] MEDS: cefTRIAXone 1GM/50ML D5W 50 ML IV SCH (09:30)
[2022-07-05] MEDS: PANTOPRAZOLE 40 MG/10 ML VIAL INJ IV SCH ×2 (09:58→21:48)
[2022-07-05] MEDS: AMIODARONE HCL 200 MG TAB GT SCH ×2 (09:59→21:48)
[2022-07-05] MEDS: LEVOTHYROXINE SODIUM 100 MCG/5 ML INJ IV SCH (09:59)
[2022-07-05] MEDS: ASPirin 81 mg TAB PO SCH (09:59)
[2022-07-05] MEDS: SODIUM CHLOR 0.9% PF (SALINE LOCK) 10ML VIAL/SYR IV SCH ×2 (09:59→21:49)
[2022-07-05] MEDS: ENOXAPARIN SOD 30 MG/0.3 ML SYRINGE SC SCH (10:00)
[2022-07-05] MEDS: CARVEDILOL 3.125 MG TAB PO SCH ×2 (10:00→21:49)
[2022-07-05] MEDS: CLOPIDOGREL BISULFATE 75 MG TAB PO SCH (10:00)
[2022-07-05] MEDS: NOREPINEPHRINE 8 MG/250ML KIT 250 ML IV SCH (13:45)
[2022-07-05] MEDS: SODIUM CHLORIDE 0.9% 1,000 ML IV SCH (19:30)
[2022-07-05] MEDS ORDERED: TPN PER PHARMACY IV NR ×10 (20:00)
[2022-07-05] MEDS: ATORVASTATIN 20 MG TAB PO SCH (21:48)
[2022-07-05] MEDS: ACETAMINOPHEN 650 mg PER 20.3 mL UD GT PRN (21:54)
[2022-07-06] VITALS (106 sets, daily range): BP systolic 98–155; BP diastolic 44–66
[2022-07-06] MEDS: PROPOFOL 100 ML IV SCH ×8 (00:27→23:21)
[2022-07-06] MEDS: MIDAZOLAM DRIP 50 mg/50mL 50 ML IV SCH ×3 (04:06→20:04)
[2022-07-06 04:12] LABS: Hematocrit 23.2 % (41.0-53.0); Hemoglobin 7.7 g/dL (13.5-17.5); Mean Corpuscular Hemoglobin 28.9 pg (28.0-32.0); Mean Corpuscular Volume 87.5 fL (80.0-100.0); Red Blood Cells 2.65 10^6/uL (4.5-5.90); Red Cell Distribution Width 14.2 % (11.8-14.3); White Blood Cell 15.1 10^3/uL (4.4-10.8)
[2022-07-06 04:14] LABS: Basophils % (manual) 0 (0.0-2.0); Blast Cells 0; Promyelocytes % 0; Reactive Lymphocytes 0
[2022-07-06 04:33] LABS: Albumin 1.9 g/dL (3.4-5.0); BUN/Creatinine Ratio 14.8; Calcium 9.4 mg/dL (8.5-10.1); Magnesium 2.1 mg/dL (1.6-2.6); Potassium 3.7 mmol/L (3.5-5.1)
[2022-07-06 04:35] LABS: Bilirubin, Total 0.4 mg/dL (0.2-1.0)
[2022-07-06] MEDS: fentaNYL Drip 2500mCg/250mlNS 250 ML IV SCH ×2 (04:56→15:14)
[2022-07-06 05:25] LABS: Band Neutrophils % (manual) 6; Eosinophils % (manual) 3 (0-7); Lymphocytes % (manual) 14 (10.0-50.0); Metamyelocytes % 1; Monocytes % (manual) 13 (0-12); Myelocytes % 6
[2022-07-06] MEDS: ACCU-CHEK COMFORT CURVE STRIP VI SCH ×4 (05:38→23:50)
[2022-07-06] MEDS: FUROSEMIDE 100 MG/10ML VIAL IV SCH ×2 (05:38→18:39)
[2022-07-06] MEDS: InsuLIN REG 1unit/0.01ml Soln (100units/ml) SC SCH ×4 (05:39→23:50)
[2022-07-06] MEDS ORDERED: SODIUM CHL 0.9% 1000 ML BAG XX ONE (07:00)
[2022-07-06] MEDS: cefTRIAXone 1GM/50ML D5W 50 ML IV SCH (12:40)
[2022-07-06] MEDS: ASPirin 81 mg TAB PO SCH (12:49)
[2022-07-06] MEDS: SODIUM CHLOR 0.9% PF (SALINE LOCK) 10ML VIAL/SYR IV SCH ×2 (12:49→21:35)
[2022-07-06] MEDS: CLOPIDOGREL BISULFATE 75 MG TAB PO SCH (12:49)
[2022-07-06] MEDS: PANTOPRAZOLE 40 MG/10 ML VIAL INJ IV SCH ×2 (12:49→21:35)
[2022-07-06] MEDS: AMIODARONE HCL 200 MG TAB GT SCH ×2 (12:49→21:34)
[2022-07-06] MEDS: ENOXAPARIN SOD 30 MG/0.3 ML SYRINGE SC SCH (12:49)
[2022-07-06] MEDS: LEVOTHYROXINE SODIUM 100 MCG/5 ML INJ IV SCH (12:49)
[2022-07-06] MEDS: NOREPINEPHRINE 8 MG/250ML KIT 250 ML IV SCH (13:45)
[2022-07-06] MEDS: CARVEDILOL 3.125 MG TAB PO SCH ×2 (17:26→21:34)
[2022-07-06] MEDS ORDERED: TPN PER PHARMACY IV NR ×9 (20:00)
[2022-07-06] MEDS ORDERED: EPOETIN ALFA-EPBX 10,000 UNIT/1ML VIAL SC ONE (21:00)
[2022-07-06] MEDS: ATORVASTATIN 20 MG TAB PO SCH (21:34)
[2022-07-07] VITALS (103 sets, daily range): BP systolic 109–149; BP diastolic 48–71
[2022-07-07] MEDS: fentaNYL Drip 2500mCg/250mlNS 250 ML IV SCH ×2 (02:50→15:20)
[2022-07-07] MEDS: PROPOFOL 100 ML IV SCH ×7 (03:36→23:18)
[2022-07-07 03:48] LABS: Hemoglobin 8.1 g/dL (13.5-17.5)
[2022-07-07 03:49] LABS: Hematocrit 24.7 % (41.0-53.0); Mean Corpuscular Hemoglobin 28.1 pg (28.0-32.0); Mean Corpuscular Hgb Conc. 32.8 g/dL (32.0-36.0); Mean Corpuscular Volume 85.8 fL (80.0-100.0); Red Blood Cells 2.88 10^6/uL (4.5-5.90); Red Cell Distribution Width 14.3 % (11.8-14.3); White Blood Cell 17.3 10^3/uL (4.4-10.8)
[2022-07-07 03:56] LABS: Basophils % (manual) 0 (0.0-2.0); Blast Cells 0; Metamyelocytes % 0; Promyelocytes % 0; Reactive Lymphocytes 0
[2022-07-07 04:21] LABS: Albumin 2.1 g/dL (3.4-5.0); Potassium 3.8 mmol/L (3.5-5.1)
[2022-07-07 04:25] LABS: BUN/Creatinine Ratio 13.8; Bilirubin, Total 0.3 mg/dL (0.2-1.0); Phosphorus 4.3 mg/dL (2.5-4.90); Total Protein 5.2 g/dL (6.4-8.2)
[2022-07-07] MEDS: MIDAZOLAM DRIP 50 mg/50mL 50 ML IV SCH ×2 (05:27→15:19)
[2022-07-07] MEDS: ACCU-CHEK COMFORT CURVE STRIP VI SCH ×4 (05:30→23:02)
[2022-07-07] MEDS: FUROSEMIDE 100 MG/10ML VIAL IV SCH ×2 (05:30→18:28)
[2022-07-07] MEDS: InsuLIN REG 1unit/0.01ml Soln (100units/ml) SC SCH ×4 (05:30→23:02)
[2022-07-07] MEDS: SODIUM CHLOR 0.9% PF (SALINE LOCK) 10ML VIAL/SYR IV SCH ×2 (08:50→21:43)
[2022-07-07] MEDS: PANTOPRAZOLE 40 MG/10 ML VIAL INJ IV SCH ×2 (08:50→21:21)
[2022-07-07] MEDS: CEFTRIAXONE SODIUM 2 GM in D5W 5% 50 ML IV SCH (08:50)
[2022-07-07 08:57] LABS: Band Neutrophils % (manual) 9; Eosinophils % (manual) 2 (0-7); Lymphocytes % (manual) 17 (10.0-50.0); Monocytes % (manual) 5 (0-12); Myelocytes % 2
[2022-07-07] MEDS: ASPirin 81 mg TAB PO SCH (10:17)
[2022-07-07] MEDS: AMIODARONE HCL 200 MG TAB GT SCH ×2 (10:17→21:21)
[2022-07-07] MEDS: CARVEDILOL 3.125 MG TAB PO SCH ×2 (10:17→21:22)
[2022-07-07] MEDS: CLOPIDOGREL BISULFATE 75 MG TAB PO SCH (10:18)
[2022-07-07] MEDS: LEVOTHYROXINE SODIUM 100 MCG/5 ML INJ IV SCH (10:18)
[2022-07-07] MEDS ORDERED: SODIUM CHL 0.9% 1000 ML BAG XX ONE (13:00)
[2022-07-07] MEDS: NOREPINEPHRINE 8 MG/250ML KIT 250 ML IV SCH (13:45)
[2022-07-07] MEDS: TPN PER PHARMACY IV NR ×10 (19:56)
[2022-07-07] MEDS ORDERED: EPOETIN ALFA-EPBX 4,000 UNIT/ML VIAL SC ONE (21:00)
[2022-07-07] MEDS: ATORVASTATIN 20 MG TAB PO SCH (21:43)
[2022-07-08] VITALS (104 sets, daily range): BP systolic 115–169; BP diastolic 50–86
[2022-07-08] MEDS: PROPOFOL 100 ML IV SCH ×7 (02:31→22:57)
[2022-07-08] MEDS: MIDAZOLAM DRIP 50 mg/50mL 50 ML IV SCH ×3 (02:32→20:03)
[2022-07-08] MEDS: fentaNYL Drip 2500mCg/250mlNS 250 ML IV SCH ×2 (03:02→15:19)
[2022-07-08 04:01] LABS: Hematocrit 22.8 % (41.0-53.0); Hemoglobin 7.5 g/dL (13.5-17.5); Mean Corpuscular Hemoglobin 28.5 pg (28.0-32.0); Mean Corpuscular Hgb Conc. 32.9 g/dL (32.0-36.0); Mean Corpuscular Volume 86.4 fL (80.0-100.0); Red Blood Cells 2.64 10^6/uL (4.5-5.90); Red Cell Distribution Width 14.4 % (11.8-14.3); White Blood Cell 17.7 10^3/uL (4.4-10.8)
[2022-07-08 04:04] LABS: Basophils % (manual) 0 (0.0-2.0); Blast Cells 0; Promyelocytes % 0; Reactive Lymphocytes 0
[2022-07-08 04:18] LABS: Albumin 1.9 g/dL (3.4-5.0); BUN/Creatinine Ratio 14.1; Calcium 9.6 mg/dL (8.5-10.1); Magnesium 2.2 mg/dL (1.6-2.6)
[2022-07-08 04:20] LABS: Bilirubin, Total 0.4 mg/dL (0.2-1.0); Phosphorus 5.6 mg/dL (2.5-4.90)
[2022-07-08 05:02] LABS: Band Neutrophils % (manual) 3; Eosinophils % (manual) 3 (0-7); Lymphocytes % (manual) 13 (10.0-50.0); Metamyelocytes % 3; Monocytes % (manual) 12 (0-12); Myelocytes % 5
[2022-07-08] MEDS: InsuLIN REG 1unit/0.01ml Soln (100units/ml) SC SCH ×4 (05:28→23:31)
[2022-07-08] MEDS: ACCU-CHEK COMFORT CURVE STRIP VI SCH ×4 (05:28→23:31)
[2022-07-08] MEDS: FUROSEMIDE 100 MG/10ML VIAL IV SCH ×2 (05:31→17:56)
[2022-07-08 08:14] LABS: INR 0.97 (0.9-1.15); Partial Thromboplastin Time 28.3 sec (24.6-33.4)
[2022-07-08] MEDS: SODIUM CHLOR 0.9% PF (SALINE LOCK) 10ML VIAL/SYR IV SCH ×2 (11:06→21:55)
[2022-07-08] MEDS: ASPirin 81 mg TAB PO SCH (11:12)
[2022-07-08] MEDS: CLOPIDOGREL BISULFATE 75 MG TAB PO SCH (11:13)
[2022-07-08] MEDS: AMIODARONE HCL 200 MG TAB GT SCH ×2 (11:14→21:54)
[2022-07-08] MEDS: CARVEDILOL 3.125 MG TAB PO SCH ×2 (11:21→21:55)
[2022-07-08] MEDS: LEVOTHYROXINE SODIUM 100 MCG/5 ML INJ IV SCH (13:45)
[2022-07-08] MEDS: NOREPINEPHRINE 8 MG/250ML KIT 250 ML IV SCH (13:45)
[2022-07-08] MEDS: PANTOPRAZOLE 40 MG/10 ML VIAL INJ IV SCH ×2 (13:50→21:54)
[2022-07-08] MEDS: CEFTRIAXONE SODIUM 2 GM in D5W 5% 50 ML IV SCH (13:56)
[2022-07-08 16:41] LABS: Hematocrit 24.2 % (41.0-53.0); Hemoglobin 8.1 g/dL (13.5-17.5)
[2022-07-08] MEDS ORDERED: TPN PER PHARMACY IV NR ×9 (20:00)
[2022-07-08] MEDS: TPN PER PHARMACY IV NR ×10 (20:02)
[2022-07-08] MEDS: ATORVASTATIN 20 MG TAB PO SCH (21:54)
[2022-07-09] VITALS (104 sets, daily range): BP systolic 119–158; BP diastolic 52–70
[2022-07-09] MEDS: PROPOFOL 100 ML IV SCH ×7 (02:47→23:33)
[2022-07-09] MEDS: fentaNYL Drip 2500mCg/250mlNS 250 ML IV SCH ×2 (04:10→16:42)
[2022-07-09 04:34] LABS: Basophils # (auto) 0.1 10 ^3/uL (0-0.2); Nucleated Red Blood Cells % 0.1 %; White Blood Cell 17.7 10^3/uL (4.4-10.8)
[2022-07-09 04:36] LABS: Basophils % (auto) 0.6 % (0.0-2.0); Eosinophils # (auto) 0.5 10 ^3/uL (0-0.8); Eosinophils % (auto) 2.6 % (0.0-7.0); Hematocrit 25.7 % (41.0-53.0); Hemoglobin 8.2 g/dL (13.5-17.5); Lymphocytes # (auto) 1.9 10 ^3/uL (0.4-5.4); Lymphocytes % (auto) 10.8 % (10.0-50.0); Mean Corpuscular Hemoglobin 27.9 pg (28.0-32.0); Mean Corpuscular Volume 87.3 fL (80.0-100.0); Monocytes # (auto) 1.9 10 ^3/uL (0-1.3); Monocytes % (auto) 10.8 % (0.0-12.0); Neutrophils # (auto) 13.3 10 ^3/uL (1.6-8.6); Neutrophils % (auto) 75.2 % (37.0-80.0); Red Blood Cells 2.94 10^6/uL (4.5-5.90); Red Cell Distribution Width 14.3 % (11.8-14.3)
[2022-07-09] MEDS: FUROSEMIDE 100 MG/10ML VIAL IV SCH ×2 (05:12→18:32)
[2022-07-09] MEDS: ACCU-CHEK COMFORT CURVE STRIP VI SCH ×4 (05:13→23:30)
[2022-07-09] MEDS: InsuLIN REG 1unit/0.01ml Soln (100units/ml) SC SCH ×4 (05:20→23:30)
[2022-07-09 06:06] LABS: Calcium 9.8 mg/dL (8.5-10.1); Magnesium 2.2 mg/dL (1.6-2.6); Phosphorus 4.5 mg/dL (2.5-4.90); Potassium 3.9 mmol/L (3.5-5.1)
[2022-07-09] MEDS: MIDAZOLAM DRIP 50 mg/50mL 50 ML IV SCH ×2 (06:09→20:36)
[2022-07-09] MEDS: ALBUMIN 25% 100 ML IV PRN ×2 (06:50→08:05)
[2022-07-09] MEDS ORDERED: SODIUM CHL 0.9% 1000 ML BAG XX ONE (07:00)
[2022-07-09] MEDS: PANTOPRAZOLE 40 MG/10 ML VIAL INJ IV SCH ×2 (10:05→21:36)
[2022-07-09] MEDS: LEVOTHYROXINE SODIUM 100 MCG/5 ML INJ IV SCH (10:05)
[2022-07-09] MEDS: SODIUM CHLOR 0.9% PF (SALINE LOCK) 10ML VIAL/SYR IV SCH ×2 (10:05→21:37)
[2022-07-09] MEDS: CLOPIDOGREL BISULFATE 75 MG TAB PO SCH (10:05)
[2022-07-09] MEDS: AMIODARONE HCL 200 MG TAB GT SCH ×2 (10:06→21:37)
[2022-07-09] MEDS: CARVEDILOL 3.125 MG TAB PO SCH ×2 (10:06→21:37)
[2022-07-09] MEDS: ASPirin 81 mg TAB PO SCH (10:06)
[2022-07-09] MEDS: CEFTRIAXONE SODIUM 2 GM in D5W 5% 50 ML IV SCH (10:17)
[2022-07-09] MEDS: NOREPINEPHRINE 8 MG/250ML KIT 250 ML IV SCH (13:45)
[2022-07-09] MEDS ORDERED: TPN PER PHARMACY IV NR ×9 (20:00)
[2022-07-09] MEDS: ATORVASTATIN 20 MG TAB PO SCH (21:37)
[2022-07-10] VITALS (106 sets, daily range): BP systolic 119–182; BP diastolic 41–77
[2022-07-10] MEDS: ALBUMIN 25% 100 ML IV PRN ×2 (00:05→01:35)
[2022-07-10] MEDS: fentaNYL Drip 2500mCg/250mlNS 250 ML IV SCH ×2 (03:23→14:49)
[2022-07-10] MEDS: PROPOFOL 100 ML IV SCH ×5 (03:24→21:30)
[2022-07-10 03:57] LABS: Mean Corpuscular Volume 85.3 fL (80.0-100.0); Red Cell Distribution Width 14.5 % (11.8-14.3); White Blood Cell 15.9 10^3/uL (4.4-10.8)
[2022-07-10 03:58] LABS: Hematocrit 23.3 % (41.0-53.0); Hemoglobin 7.8 g/dL (13.5-17.5); Mean Corpuscular Hemoglobin 28.5 pg (28.0-32.0); Mean Corpuscular Hgb Conc. 33.4 g/dL (32.0-36.0); Red Blood Cells 2.73 10^6/uL (4.5-5.90)
[2022-07-10 04:04] LABS: Basophils % (manual) 0 (0.0-2.0); Blast Cells 0; Metamyelocytes % 0; Promyelocytes % 0; Reactive Lymphocytes 0
[2022-07-10 04:17] LABS: Potassium 3.6 mmol/L (3.5-5.1)
[2022-07-10 04:24] LABS: Albumin 3.2 g/dL (3.4-5.0); BUN/Creatinine Ratio 13.4; Calcium 9.6 mg/dL (8.5-10.1); Magnesium 2.3 mg/dL (1.6-2.6)
[2022-07-10 04:27] LABS: Bilirubin, Total 0.5 mg/dL (0.2-1.0); Phosphorus 2.4 mg/dL (2.5-4.90); Total Protein 6.2 g/dL (6.4-8.2)
[2022-07-10] MEDS: hydrALAZINE HCL 20 MG/ML VL IV PRN ×2 (04:50→18:04)
[2022-07-10] MEDS: InsuLIN REG 1unit/0.01ml Soln (100units/ml) SC SCH ×4 (05:20→23:36)
[2022-07-10] MEDS: ACCU-CHEK COMFORT CURVE STRIP VI SCH ×4 (05:20→23:35)
[2022-07-10] MEDS: FUROSEMIDE 100 MG/10ML VIAL IV SCH ×2 (05:22→17:53)
[2022-07-10] MEDS: MIDAZOLAM DRIP 50 mg/50mL 50 ML IV SCH (05:38)
[2022-07-10] MEDS ORDERED: SODIUM CHL 0.9% 1000 ML BAG XX ONE (07:00)
[2022-07-10 07:35] LABS: Band Neutrophils % (manual) 8; Eosinophils % (manual) 3 (0-7); Lymphocytes % (manual) 8 (10.0-50.0); Monocytes % (manual) 10 (0-12); Myelocytes % 5
[2022-07-10] MEDS: ASPirin 81 mg TAB PO SCH (09:37)
[2022-07-10] MEDS: AMIODARONE HCL 200 MG TAB GT SCH ×2 (09:38→21:00)
[2022-07-10] MEDS: CLOPIDOGREL BISULFATE 75 MG TAB PO SCH (09:38)
[2022-07-10] MEDS: PANTOPRAZOLE 40 MG/10 ML VIAL INJ IV SCH ×2 (09:38→21:00)
[2022-07-10] MEDS: CARVEDILOL 3.125 MG TAB PO SCH (09:38)
[2022-07-10] MEDS: SODIUM CHLOR 0.9% PF (SALINE LOCK) 10ML VIAL/SYR IV SCH ×2 (09:39→21:00)
[2022-07-10] MEDS: LEVOTHYROXINE SODIUM 100 MCG/5 ML INJ IV SCH (09:39)
[2022-07-10] MEDS: CEFTRIAXONE SODIUM 2 GM in D5W 5% 50 ML IV SCH (10:02)
[2022-07-10] MEDS: NOREPINEPHRINE 8 MG/250ML KIT 250 ML IV SCH (13:45)
[2022-07-10] MEDS ORDERED: TPN PER PHARMACY IV NR ×7 (20:00)
[2022-07-10] MEDS ORDERED: EPOETIN ALFA-EPBX 4,000 UNIT/ML VIAL SC ONE (21:00)
[2022-07-10] MEDS: ATORVASTATIN 20 MG TAB PO SCH (21:01)
[2022-07-10] MEDS: CARVEDILOL 12.5 MG TAB PO SCH (21:01)
[2022-07-11] VITALS (91 sets, daily range): BP systolic 119–177; BP diastolic 44–76
[2022-07-11] MEDS: PROPOFOL 100 ML IV SCH ×6 (00:48→23:18)
[2022-07-11 04:14] LABS: Hematocrit 24.9 % (41.0-53.0); Hemoglobin 7.9 g/dL (13.5-17.5); Mean Corpuscular Hgb Conc. 31.9 g/dL (32.0-36.0); Mean Corpuscular Volume 87.7 fL (80.0-100.0); Red Blood Cells 2.84 10^6/uL (4.5-5.90); Red Cell Distribution Width 15.1 % (11.8-14.3); White Blood Cell 18.5 10^3/uL (4.4-10.8)
[2022-07-11 04:18] LABS: Albumin 2.6 g/dL (3.4-5.0); BUN/Creatinine Ratio 15.4; Basophils % (manual) 0 (0.0-2.0); Blast Cells 0; Calcium 10.2 mg/dL (8.5-10.1); Magnesium 2.4 mg/dL (1.6-2.6); Metamyelocytes % 0; Potassium 4.1 mmol/L (3.5-5.1); Promyelocytes % 0; Reactive Lymphocytes 0
[2022-07-11] MEDS ORDERED: ALBUMIN 25% 50 ML IV ONE (04:18)
[2022-07-11 04:21] LABS: Bilirubin, Total 0.6 mg/dL (0.2-1.0); Phosphorus 4.4 mg/dL (2.5-4.90); Total Protein 5.7 g/dL (6.4-8.2)
[2022-07-11 05:43] LABS: Band Neutrophils % (manual) 4; Eosinophils % (manual) 2 (0-7); Lymphocytes % (manual) 13 (10.0-50.0); Monocytes % (manual) 9 (0-12); Myelocytes % 4
[2022-07-11] MEDS: InsuLIN REG 1unit/0.01ml Soln (100units/ml) SC SCH ×5 (06:00→22:00)
[2022-07-11] MEDS: FUROSEMIDE 100 MG/10ML VIAL IV SCH ×2 (06:24→18:26)
[2022-07-11] MEDS: ACCU-CHEK COMFORT CURVE STRIP VI SCH ×4 (06:24→22:11)
[2022-07-11] MEDS ORDERED: SODIUM CHL 0.9% 1000 ML BAG XX ONE (07:00)
[2022-07-11] MEDS: fentaNYL Drip 2500mCg/250mlNS 250 ML IV SCH (07:30)
[2022-07-11] MEDS: hydrALAZINE HCL 20 MG/ML VL IV PRN ×2 (09:14→16:30)
[2022-07-11] MEDS: CLOPIDOGREL BISULFATE 75 MG TAB PO SCH (09:38)
[2022-07-11] MEDS: AMIODARONE HCL 200 MG TAB GT SCH ×2 (09:38→21:33)
[2022-07-11] MEDS: CARVEDILOL 12.5 MG TAB PO SCH ×2 (09:38→21:34)
[2022-07-11] MEDS: ASPirin 81 mg TAB PO SCH (09:38)
[2022-07-11] MEDS: LEVOTHYROXINE SODIUM 100 MCG/5 ML INJ IV SCH (09:39)
[2022-07-11] MEDS: PANTOPRAZOLE 40 MG/10 ML VIAL INJ IV SCH ×2 (09:39→21:34)
[2022-07-11] MEDS: CEFTRIAXONE SODIUM 2 GM in D5W 5% 50 ML IV SCH (09:39)
[2022-07-11] MEDS: SODIUM CHLOR 0.9% PF (SALINE LOCK) 10ML VIAL/SYR IV SCH ×2 (09:40→21:34)
[2022-07-11] MEDS ORDERED: CEFEPIME 1GM/ 50ML 50 ML IV ONE (11:30)
[2022-07-11] MEDS: MIDAZOLAM DRIP 50 mg/50mL 50 ML IV SCH (13:00)
[2022-07-11] MEDS: NOREPINEPHRINE 8 MG/250ML KIT 250 ML IV SCH (13:45)
[2022-07-11] MEDS ORDERED: Jevity 1.2 Cal/Fiber 1 Liter GT SCH (17:00)
[2022-07-11] MEDS: IPRATROPIUM BROM 0.5 MG/2.5ML INH SOL NEB PRN (18:05)
[2022-07-11] MEDS: ALBUTEROL MEDNEB 2.5 mg/3ml NEB NEB PRN (18:05)
[2022-07-11] MEDS ORDERED: TPN PER PHARMACY IV NR ×7 (20:00)
[2022-07-11] MEDS: ATORVASTATIN 20 MG TAB PO SCH (21:32)
[2022-07-11] MEDS: LINEZOLID 600MG/300ML 300 ML IV SCH (21:35)
[2022-07-12] VITALS (102 sets, daily range): BP systolic 109–169; BP diastolic 56–84
[2022-07-12] MEDS: ALBUTEROL MEDNEB 2.5 mg/3ml NEB NEB PRN (00:23)
[2022-07-12] MEDS: IPRATROPIUM BROM 0.5 MG/2.5ML INH SOL NEB PRN (00:23)
[2022-07-12] MEDS: PROPOFOL 100 ML IV SCH ×4 (02:02→13:48)
[2022-07-12] MEDS: hydrALAZINE HCL 20 MG/ML VL IV PRN ×2 (03:04→14:06)
[2022-07-12 03:42] LABS: Hematocrit 25.6 % (41.0-53.0); Hemoglobin 8.5 g/dL (13.5-17.5); Mean Corpuscular Hemoglobin 29.8 pg (28.0-32.0); Mean Corpuscular Hgb Conc. 33.1 g/dL (32.0-36.0); Mean Corpuscular Volume 90.1 fL (80.0-100.0); Red Blood Cells 2.84 10^6/uL (4.5-5.90); Red Cell Distribution Width 15.7 % (11.8-14.3); White Blood Cell 18.6 10^3/uL (4.4-10.8)
[2022-07-12 03:47] LABS: Basophils % (manual) 0 (0.0-2.0); Blast Cells 0; Metamyelocytes % 0; Myelocytes % 0; Promyelocytes % 0; Reactive Lymphocytes 0
[2022-07-12 04:45] LABS: Band Neutrophils % (manual) 13; Eosinophils % (manual) 2 (0-7); Lymphocytes % (manual) 16 (10.0-50.0); Monocytes % (manual) 2 (0-12)
[2022-07-12] MEDS: FUROSEMIDE 100 MG/10ML VIAL IV SCH ×2 (05:39→18:00)
[2022-07-12] MEDS: fentaNYL Drip 2500mCg/250mlNS 250 ML IV SCH (05:44)
[2022-07-12] MEDS: InsuLIN REG 1unit/0.01ml Soln (100units/ml) SC SCH ×3 (05:51→18:00)
[2022-07-12] MEDS: ACCU-CHEK COMFORT CURVE STRIP VI SCH ×3 (05:52→18:00)
[2022-07-12] MEDS ORDERED: SODIUM CHL 0.9% 1000 ML BAG XX ONE (07:00)
[2022-07-12 07:43] LABS: Albumin 2.4 g/dL (3.4-5.0)
[2022-07-12 09:02] LABS: BUN/Creatinine Ratio 16.1; Bilirubin, Total 0.5 mg/dL (0.2-1.0); Calcium 10.8 mg/dL (8.5-10.1); Magnesium 2.5 mg/dL (1.6-2.6); Phosphorus 5.7 mg/dL (2.5-4.90); Potassium 4.8 mmol/L (3.5-5.1); Total Protein 6.4 g/dL (6.4-8.2)
[2022-07-12] MEDS: ALBUMIN 25% 100 ML IV PRN (09:35)
[2022-07-12] MEDS ORDERED: CEFEPIME 1GM/ 50ML 50 ML IV SCH (10:00)
[2022-07-12] MEDS: FLUCONAZOLE 200MG/100ML 100 ML IV SCH ×2 (12:00→13:00)
[2022-07-12] MEDS: AMIODARONE HCL 200 MG TAB GT SCH ×2 (12:00→21:36)
[2022-07-12] MEDS: PANTOPRAZOLE 40 MG/10 ML VIAL INJ IV SCH ×2 (12:00→21:36)
[2022-07-12] MEDS: ASPirin 81 mg TAB PO SCH (12:00)
[2022-07-12] MEDS: CLOPIDOGREL BISULFATE 75 MG TAB PO SCH (12:01)
[2022-07-12] MEDS: CARVEDILOL 12.5 MG TAB PO SCH ×2 (12:01→21:38)
[2022-07-12] MEDS: LEVOTHYROXINE SODIUM 100 MCG/5 ML INJ IV SCH (12:02)
[2022-07-12] MEDS: SODIUM CHLOR 0.9% PF (SALINE LOCK) 10ML VIAL/SYR IV SCH ×2 (12:02→21:35)
[2022-07-12] MEDS: LINEZOLID 600MG/300ML 300 ML IV SCH ×2 (12:55→21:36)
[2022-07-12] MEDS: MIDAZOLAM DRIP 50 mg/50mL 50 ML IV SCH (13:00)
[2022-07-12] MEDS: NOREPINEPHRINE 8 MG/250ML KIT 250 ML IV SCH (13:45)
[2022-07-12] MEDS ORDERED: cloNIDine 0.2 mg/24hr 7DAY PATCH TD SCH (16:00)
[2022-07-12] MEDS ORDERED: TPN PER PHARMACY IV NR ×6 (20:00)
[2022-07-12] MEDS: ATORVASTATIN 20 MG TAB PO SCH (21:36)
[2022-07-13] VITALS (108 sets, daily range): BP systolic 114–179; BP diastolic 57–87
[2022-07-13] MEDS: ACCU-CHEK COMFORT CURVE STRIP VI SCH ×5 (00:24→23:42)
[2022-07-13] MEDS: fentaNYL Drip 2500mCg/250mlNS 250 ML IV SCH (03:40)
[2022-07-13 04:04] LABS: Hemoglobin 7.8 g/dL (13.5-17.5); Mean Corpuscular Volume 86.4 fL (80.0-100.0)
[2022-07-13 04:08] LABS: Hematocrit 23.6 % (41.0-53.0); Mean Corpuscular Hemoglobin 28.6 pg (28.0-32.0); Mean Corpuscular Hgb Conc. 33.1 g/dL (32.0-36.0); Red Blood Cells 2.73 10^6/uL (4.5-5.90); Red Cell Distribution Width 15.1 % (11.8-14.3)
[2022-07-13 04:12] LABS: Basophils % (manual) 0 (0.0-2.0); Blast Cells 0; Metamyelocytes % 0; Promyelocytes % 0; Reactive Lymphocytes 0
[2022-07-13 04:20] LABS: Albumin 2.7 g/dL (3.4-5.0); Calcium 10.2 mg/dL (8.5-10.1); Magnesium 2.3 mg/dL (1.6-2.6)
[2022-07-13 04:23] LABS: BUN/Creatinine Ratio 15.5
[2022-07-13 04:25] LABS: Bilirubin, Total 0.5 mg/dL (0.2-1.0); Phosphorus 4.5 mg/dL (2.5-4.90); Total Protein 5.9 g/dL (6.4-8.2)
[2022-07-13 04:56] LABS: Band Neutrophils % (manual) 14; Eosinophils % (manual) 3 (0-7); Lymphocytes % (manual) 11 (10.0-50.0); Monocytes % (manual) 10 (0-12); Myelocytes % 3
[2022-07-13] MEDS: FUROSEMIDE 100 MG/10ML VIAL IV SCH ×2 (05:33→17:45)
[2022-07-13] MEDS: InsuLIN REG 1unit/0.01ml Soln (100units/ml) SC SCH ×5 (05:33→23:42)
[2022-07-13] MEDS: PANTOPRAZOLE 40 MG/10 ML VIAL INJ IV SCH ×2 (08:30→21:05)
[2022-07-13] MEDS: SODIUM CHLOR 0.9% PF (SALINE LOCK) 10ML VIAL/SYR IV SCH ×2 (08:30→21:07)
[2022-07-13] MEDS: LEVOTHYROXINE SODIUM 100 MCG/5 ML INJ IV SCH (08:30)
[2022-07-13] MEDS: LINEZOLID 600MG/300ML 300 ML IV SCH ×2 (08:31→21:05)
[2022-07-13] MEDS ORDERED: SODIUM CHL 0.9% 1000 ML BAG XX ONE (08:45)
[2022-07-13] MEDS: ALBUTEROL MEDNEB 2.5 mg/3ml NEB NEB PRN ×2 (08:55→10:09)
[2022-07-13] MEDS: IPRATROPIUM BROM 0.5 MG/2.5ML INH SOL NEB PRN ×2 (08:55→10:09)
[2022-07-13] MEDS: ALBUMIN 25% 100 ML IV PRN ×2 (09:50→11:20)
[2022-07-13] MEDS ORDERED: FLUCONAZOLE 200MG/100ML 100 ML IV SCH (10:00)
[2022-07-13] MEDS: CLOPIDOGREL BISULFATE 75 MG TAB PO SCH (10:39)
[2022-07-13] MEDS: ASPirin 81 mg TAB PO SCH (10:39)
[2022-07-13] MEDS: CARVEDILOL 12.5 MG TAB PO SCH ×2 (10:40→21:06)
[2022-07-13] MEDS: AMIODARONE HCL 200 MG TAB GT SCH ×2 (10:40→21:06)
[2022-07-13] MEDS: MIDAZOLAM DRIP 50 mg/50mL 50 ML IV SCH ×2 (12:32→13:00)
[2022-07-13] MEDS: hydrALAZINE HCL 20 MG/ML VL IV PRN (15:07)
[2022-07-13] MEDS: PROPOFOL 100 ML IV SCH (16:40)
[2022-07-13] MEDS ORDERED: TPN PER PHARMACY IV NR ×9 (20:00)
[2022-07-13] MEDS ORDERED: EPOETIN ALFA-EPBX 10,000 UNIT/1ML VIAL SC ONE (21:00)
[2022-07-13] MEDS: ATORVASTATIN 20 MG TAB PO SCH (21:06)
[2022-07-14] VITALS (103 sets, daily range): BP systolic 112–185; BP diastolic 60–87
[2022-07-14] MEDS: PROPOFOL 100 ML IV SCH ×3 (02:36→22:37)
[2022-07-14] MEDS: hydrALAZINE HCL 20 MG/ML VL IV PRN (03:18)
[2022-07-14] MEDS: ACCU-CHEK COMFORT CURVE STRIP VI SCH ×4 (05:46→23:53)
[2022-07-14] MEDS: InsuLIN REG 1unit/0.01ml Soln (100units/ml) SC SCH ×4 (05:46→23:53)
[2022-07-14 05:52] LABS: Hematocrit 23.9 % (41.0-53.0)
[2022-07-14 05:54] LABS: Hemoglobin 7.8 g/dL (13.5-17.5); Mean Corpuscular Hemoglobin 28.3 pg (28.0-32.0); Mean Corpuscular Hgb Conc. 32.8 g/dL (32.0-36.0); Mean Corpuscular Volume 86.3 fL (80.0-100.0); Red Blood Cells 2.77 10^6/uL (4.5-5.90); Red Cell Distribution Width 14.9 % (11.8-14.3); White Blood Cell 19.6 10^3/uL (4.4-10.8)
[2022-07-14 05:58] LABS: Albumin 2.9 g/dL (3.4-5.0); BUN/Creatinine Ratio 15.6; Calcium 10.2 mg/dL (8.5-10.1); Magnesium 2.4 mg/dL (1.6-2.6); Potassium 3.7 mmol/L (3.5-5.1)
[2022-07-14 06:05] LABS: Bilirubin, Total 0.6 mg/dL (0.2-1.0); Phosphorus 3.6 mg/dL (2.5-4.90); Total Protein 6.8 g/dL (6.4-8.2)
[2022-07-14] MEDS: FUROSEMIDE 100 MG/10ML VIAL IV SCH ×2 (06:06→18:28)
[2022-07-14 06:13] LABS: Basophils % (manual) 0 (0.0-2.0); Blast Cells 0; Promyelocytes % 0; Reactive Lymphocytes 0
[2022-07-14] MEDS: fentaNYL Drip 2500mCg/250mlNS 250 ML IV SCH ×2 (06:24→11:05)
[2022-07-14] MEDS ORDERED: SODIUM CHL 0.9% 1000 ML BAG XX ONE (08:45)
[2022-07-14 09:16] LABS: Band Neutrophils % (manual) 4; Eosinophils % (manual) 1 (0-7); Lymphocytes % (manual) 5 (10.0-50.0); Metamyelocytes % 2; Monocytes % (manual) 12 (0-12); Myelocytes % 5
[2022-07-14] MEDS: AMIODARONE HCL 200 MG TAB GT SCH ×2 (10:03→20:43)
[2022-07-14] MEDS: ASPirin 81 mg TAB PO SCH (10:03)
[2022-07-14] MEDS: CARVEDILOL 12.5 MG TAB PO SCH ×2 (10:04→20:43)
[2022-07-14] MEDS: amLODIPine BESYLATE 5 MG TAB GT SCH (10:05)
[2022-07-14] MEDS: CLOPIDOGREL BISULFATE 75 MG TAB PO SCH (10:05)
[2022-07-14] MEDS: SODIUM CHLOR 0.9% PF (SALINE LOCK) 10ML VIAL/SYR IV SCH ×2 (10:11→20:43)
[2022-07-14 10:47] LABS: Urine Bacteria NONE SEEN /hpf (None Seen); Urine Blood 3+ /uL (Negative); Urine Specific Gravity 1.013 (1.001-1.035); Urine WBC 129 /hpf (0 - 3)
[2022-07-14 10:56] LABS: INR 1.01 (0.9-1.15); Partial Thromboplastin Time 26.3 sec (24.6-33.4)
[2022-07-14] MEDS: LEVOTHYROXINE SODIUM 100 MCG/5 ML INJ IV SCH (12:26)
[2022-07-14] MEDS: PANTOPRAZOLE 40 MG/10 ML VIAL INJ IV SCH ×2 (12:27→20:43)
[2022-07-14] MEDS: LINEZOLID 600MG/300ML 300 ML IV SCH ×2 (12:27→20:44)
[2022-07-14] MEDS: MIDAZOLAM DRIP 50 mg/50mL 50 ML IV SCH (12:40)
[2022-07-14] MEDS: IPRATROPIUM BROM 0.5 MG/2.5ML INH SOL NEB PRN (18:33)
[2022-07-14] MEDS: ALBUTEROL MEDNEB 2.5 mg/3ml NEB NEB PRN (18:33)
[2022-07-14] MEDS ORDERED: TPN*HIGH CONC* PER PHARMACY IV NR ×9 (20:00)
[2022-07-14] MEDS ORDERED: TPN PER PHARMACY IV NR ×9 (20:00)
[2022-07-14] MEDS: ATORVASTATIN 20 MG TAB PO SCH (20:43)
[2022-07-14] MEDS ORDERED: EPOETIN ALFA-EPBX 10,000 UNIT/1ML VIAL SC ONE (21:00)
[2022-07-15] VITALS (95 sets, daily range): BP systolic 109–199; BP diastolic 56–89
[2022-07-15 04:15] LABS: Eosinophils # (auto) 0.2 10 ^3/uL (0-0.8); Hematocrit 22.8 % (41.0-53.0); Hemoglobin 7.7 g/dL (13.5-17.5); Nucleated Red Blood Cells % 0.1 %; Red Blood Cells 2.64 10^6/uL (4.5-5.90)
[2022-07-15 04:16] LABS: Basophils # (auto) 0.2 10 ^3/uL (0-0.2); Basophils % (auto) 1.1 % (0.0-2.0); Eosinophils % (auto) 0.9 % (0.0-7.0); Lymphocytes # (auto) 2.2 10 ^3/uL (0.4-5.4); Lymphocytes % (auto) 12.1 % (10.0-50.0); Mean Corpuscular Hemoglobin 29.3 pg (28.0-32.0); Mean Corpuscular Hgb Conc. 33.8 g/dL (32.0-36.0); Mean Corpuscular Volume 86.5 fL (80.0-100.0); Monocytes # (auto) 2.5 10 ^3/uL (0-1.3); Neutrophils # (auto) 12.8 10 ^3/uL (1.6-8.6); Neutrophils % (auto) 71.9 % (37.0-80.0); Red Cell Distribution Width 15.3 % (11.8-14.3); White Blood Cell 17.8 10^3/uL (4.4-10.8)
[2022-07-15 04:33] LABS: Calcium 10.2 mg/dL (8.5-10.1); Magnesium 2.1 mg/dL (1.6-2.6); Potassium 3.7 mmol/L (3.5-5.1)
[2022-07-15 04:36] LABS: Bilirubin, Total 0.5 mg/dL (0.2-1.0); Phosphorus 3.3 mg/dL (2.5-4.90); Total Protein 6.8 g/dL (6.4-8.2)
[2022-07-15] MEDS: FUROSEMIDE 100 MG/10ML VIAL IV SCH ×2 (05:13→17:46)
[2022-07-15] MEDS: InsuLIN REG 1unit/0.01ml Soln (100units/ml) SC SCH ×4 (05:42→23:29)
[2022-07-15] MEDS: ACCU-CHEK COMFORT CURVE STRIP VI SCH ×4 (05:43→23:31)
[2022-07-15] MEDS: ALBUTEROL MEDNEB 2.5 mg/3ml NEB NEB PRN ×2 (06:21→12:51)
[2022-07-15] MEDS: IPRATROPIUM BROM 0.5 MG/2.5ML INH SOL NEB PRN ×2 (06:21→12:51)
[2022-07-15] MEDS: PROPOFOL 100 ML IV SCH ×4 (06:35→22:44)
[2022-07-15] MEDS: METOPROLOL TARTRATE 1MG/1ML-5ML VIAL IV PRN ×2 (08:35→17:41)
[2022-07-15] MEDS: LINEZOLID 600MG/300ML 300 ML IV SCH ×2 (10:09→20:56)
[2022-07-15] MEDS: CLOPIDOGREL BISULFATE 75 MG TAB PO SCH (10:09)
[2022-07-15] MEDS: amLODIPine BESYLATE 5 MG TAB GT SCH (10:10)
[2022-07-15] MEDS: AMIODARONE HCL 200 MG TAB GT SCH ×2 (10:10→20:56)
[2022-07-15] MEDS: CARVEDILOL 12.5 MG TAB PO SCH ×2 (10:11→20:56)
[2022-07-15] MEDS: LEVOTHYROXINE SODIUM 100 MCG/5 ML INJ IV SCH (10:11)
[2022-07-15] MEDS: ASPirin 81 mg TAB PO SCH (10:11)
[2022-07-15] MEDS: SODIUM CHLOR 0.9% PF (SALINE LOCK) 10ML VIAL/SYR IV SCH ×2 (10:11→20:56)
[2022-07-15] MEDS: PANTOPRAZOLE 40 MG/10 ML VIAL INJ IV SCH ×2 (10:11→20:55)
[2022-07-15] MEDS ORDERED: GLYCOPYRROLATE 0.2 MG/ML 1ML VIAL ONE (11:38)
[2022-07-15] MEDS ORDERED: EPINEPHrine HCL 1 MG/1 ML AMP ONE (11:38)
[2022-07-15] MEDS ORDERED: LIDOCAINE 2% JELLY 11ml (GLYDO) ONE (11:38)
[2022-07-15] MEDS ORDERED: LIDOCAINE 2%HCL (LOCAL ANESTH.) INJ 20ML MDV ONE (11:39)
[2022-07-15] MEDS: CEFEPIME 2 GM in SODIUM CHL 0.9% 50 ML IV SCH (12:14)
[2022-07-15] MEDS: hydrALAZINE HCL 20 MG/ML VL IV PRN (12:27)
[2022-07-15] MEDS: MIDAZOLAM DRIP 50 mg/50mL 50 ML IV SCH (13:00)
[2022-07-15] MEDS: fentaNYL Drip 2500mCg/250mlNS 250 ML IV SCH ×2 (13:00→17:12)
[2022-07-15] MEDS ORDERED: TPN*HIGH CONC* PER PHARMACY IV NR ×8 (20:00)
[2022-07-15] MEDS: ATORVASTATIN 20 MG TAB PO SCH (20:55)
[2022-07-16] VITALS (101 sets, daily range): BP systolic 104–186; BP diastolic 49–75
[2022-07-16] MEDS: hydrALAZINE HCL 20 MG/ML VL IV PRN (00:11)
[2022-07-16] MEDS: FUROSEMIDE 100 MG/10ML VIAL IV SCH (05:19)
[2022-07-16 05:27] LABS: Red Cell Distribution Width 15.4 % (11.8-14.3)
[2022-07-16 05:28] LABS: Hematocrit 22.2 % (41.0-53.0); Mean Corpuscular Hemoglobin 31.1 pg (28.0-32.0); Mean Corpuscular Hgb Conc. 36.2 g/dL (32.0-36.0); Red Blood Cells 2.58 10^6/uL (4.5-5.90); White Blood Cell 17.6 10^3/uL (4.4-10.8)
[2022-07-16 05:56] LABS: Albumin 2.8 g/dL (3.4-5.0); BUN/Creatinine Ratio 17.5; Calcium 10.2 mg/dL (8.5-10.1); Magnesium 2.3 mg/dL (1.6-2.6)
[2022-07-16 05:57] LABS: % Iron Saturation 18.8 % (20-55)
[2022-07-16 05:58] LABS: Bilirubin, Total 0.8 mg/dL (0.2-1.0); Phosphorus 4.5 mg/dL (2.5-4.90); Total Protein 6.7 g/dL (6.4-8.2)
[2022-07-16] MEDS: ACCU-CHEK COMFORT CURVE STRIP VI SCH ×2 (06:00→12:26)
[2022-07-16] MEDS: InsuLIN REG 1unit/0.01ml Soln (100units/ml) SC SCH ×2 (06:16→12:26)
[2022-07-16 06:21] LABS: Band Neutrophils % (manual) 7; Basophils % (manual) 0 (0.0-2.0); Blast Cells 0; Eosinophils % (manual) 0 (0-7); Lymphocytes % (manual) 10 (10.0-50.0); Metamyelocytes % 0; Monocytes % (manual) 11 (0-12); Promyelocytes % 0; Reactive Lymphocytes 0
[2022-07-16 06:22] LABS: Myelocytes % 2
[2022-07-16] MEDS: PROPOFOL 100 ML IV SCH ×3 (06:51→17:00)
[2022-07-16] MEDS ORDERED: SODIUM CHL 0.9% 1000 ML BAG XX ONE (07:00)
[2022-07-16] MEDS: LINEZOLID 600MG/300ML 300 ML IV SCH ×2 (09:37→21:59)
[2022-07-16] MEDS: CLOPIDOGREL BISULFATE 75 MG TAB PO SCH (09:38)
[2022-07-16] MEDS: ASPirin 81 mg TAB PO SCH (09:38)
[2022-07-16] MEDS: PANTOPRAZOLE 40 MG/10 ML VIAL INJ IV SCH ×2 (09:38→21:49)
[2022-07-16] MEDS: LEVOTHYROXINE SODIUM 100 MCG/5 ML INJ IV SCH (09:38)
[2022-07-16] MEDS: amLODIPine BESYLATE 5 MG TAB GT SCH (09:39)
[2022-07-16] MEDS: CARVEDILOL 12.5 MG TAB PO SCH ×2 (09:39→21:50)
[2022-07-16] MEDS: AMIODARONE HCL 200 MG TAB GT SCH ×2 (09:40→21:50)
[2022-07-16] MEDS: SODIUM CHLOR 0.9% PF (SALINE LOCK) 10ML VIAL/SYR IV SCH ×2 (10:09→21:51)
[2022-07-16] MEDS: IPRATROPIUM BROM 0.5 MG/2.5ML INH SOL NEB PRN ×3 (11:10→14:12)
[2022-07-16] MEDS: ALBUTEROL MEDNEB 2.5 mg/3ml NEB NEB PRN ×3 (11:10→14:12)
[2022-07-16] MEDS ORDERED: cloNIDine 0.3 mg/24hr 7DAY PATCH TD SCH (12:15)
[2022-07-16] MEDS: CEFEPIME 2 GM in SODIUM CHL 0.9% 50 ML IV SCH (12:15)
[2022-07-16] MEDS: MIDAZOLAM DRIP 50 mg/50mL 50 ML IV SCH (13:00)
[2022-07-16] MEDS ORDERED: TPN*HIGH CONC* PER PHARMACY IV NR ×7 (20:00)
[2022-07-16] MEDS ORDERED: EPOETIN ALFA-EPBX 4,000 UNIT/ML VIAL SC ONE (21:00)
[2022-07-16] MEDS: ATORVASTATIN 20 MG TAB PO SCH (21:50)
[2022-07-17] VITALS (102 sets, daily range): BP systolic 110–175; BP diastolic 56–77
[2022-07-17] MEDS: PROPOFOL 100 ML IV SCH ×2 (00:01→06:10)
[2022-07-17] MEDS: ACCU-CHEK COMFORT CURVE STRIP VI SCH ×4 (00:05→18:23)
[2022-07-17 03:37] LABS: Hematocrit 22.9 % (41.0-53.0); Mean Corpuscular Hemoglobin 30.8 pg (28.0-32.0); Mean Corpuscular Hgb Conc. 35.1 g/dL (32.0-36.0); Red Blood Cells 2.61 10^6/uL (4.5-5.90); Red Cell Distribution Width 15.8 % (11.8-14.3); White Blood Cell 16.8 10^3/uL (4.4-10.8)
[2022-07-17 03:39] LABS: Basophils % (manual) 0 (0.0-2.0); Blast Cells 0; Eosinophils % (manual) 0 (0-7); Metamyelocytes % 0; Myelocytes % 0; Promyelocytes % 0; Reactive Lymphocytes 0
[2022-07-17 04:19] LABS: Albumin 2.9 g/dL (3.4-5.0); Calcium 9.6 mg/dL (8.5-10.1); Magnesium 2.2 mg/dL (1.6-2.6); Potassium 3.9 mmol/L (3.5-5.1)
[2022-07-17 04:22] LABS: BUN/Creatinine Ratio 17.2; Bilirubin, Total 0.8 mg/dL (0.2-1.0); Phosphorus 4.3 mg/dL (2.5-4.90); Total Protein 6.2 g/dL (6.4-8.2)
[2022-07-17 04:56] LABS: Band Neutrophils % (manual) 3; Lymphocytes % (manual) 9 (10.0-50.0); Monocytes % (manual) 14 (0-12)
[2022-07-17] MEDS: InsuLIN REG 1unit/0.01ml Soln (100units/ml) SC SCH ×4 (06:00→18:00)
[2022-07-17] MEDS: FUROSEMIDE 100 MG/10ML VIAL IV SCH ×3 (06:10→18:23)
[2022-07-17] MEDS: fentaNYL Drip 2500mCg/250mlNS 250 ML IV SCH (08:40)
[2022-07-17] MEDS: CLOPIDOGREL BISULFATE 75 MG TAB PO SCH (10:09)
[2022-07-17] MEDS: PANTOPRAZOLE 40 MG/10 ML VIAL INJ IV SCH ×2 (10:09→22:27)
[2022-07-17] MEDS: ASPirin 81 mg TAB PO SCH (10:09)
[2022-07-17] MEDS: amLODIPine BESYLATE 5 MG TAB GT SCH (10:10)
[2022-07-17] MEDS: CARVEDILOL 12.5 MG TAB PO SCH ×2 (10:11→22:28)
[2022-07-17] MEDS: AMIODARONE HCL 200 MG TAB GT SCH ×2 (10:11→22:28)
[2022-07-17] MEDS: CEFEPIME 2 GM in SODIUM CHL 0.9% 50 ML IV SCH (10:13)
[2022-07-17] MEDS: LEVOTHYROXINE SODIUM 100 MCG/5 ML INJ IV SCH (11:30)
[2022-07-17] MEDS: SODIUM CHLOR 0.9% PF (SALINE LOCK) 10ML VIAL/SYR IV SCH ×2 (11:41→22:29)
[2022-07-17] MEDS: MIDAZOLAM DRIP 50 mg/50mL 50 ML IV SCH (13:00)
[2022-07-17] MEDS ORDERED: TPN PER PHARMACY IV NR ×7 (20:00)
[2022-07-17] MEDS: ATORVASTATIN 20 MG TAB PO SCH (22:28)
[2022-07-18] VITALS (91 sets, daily range): BP systolic 123–192; BP diastolic 56–82
[2022-07-18] MEDS: ACCU-CHEK COMFORT CURVE STRIP VI SCH ×4 (00:52→18:28)
[2022-07-18] MEDS: hydrALAZINE HCL 20 MG/ML VL IV PRN ×2 (02:54→22:23)
[2022-07-18] MEDS: InsuLIN REG 1unit/0.01ml Soln (100units/ml) SC SCH ×4 (06:00→18:00)
[2022-07-18] MEDS: FUROSEMIDE 100 MG/10ML VIAL IV SCH ×2 (06:00→18:28)
[2022-07-18 06:07] LABS: Hematocrit 25.5 % (41.0-53.0); Hemoglobin 8.5 g/dL (13.5-17.5); Mean Corpuscular Hemoglobin 29.6 pg (28.0-32.0); Mean Corpuscular Hgb Conc. 33.5 g/dL (32.0-36.0); Mean Corpuscular Volume 88.5 fL (80.0-100.0); Red Blood Cells 2.88 10^6/uL (4.5-5.90); Red Cell Distribution Width 15.8 % (11.8-14.3)
[2022-07-18 06:10] LABS: Basophils % (manual) 0 (0.0-2.0); Blast Cells 0; Promyelocytes % 0; Reactive Lymphocytes 0
[2022-07-18 06:32] LABS: Calcium 10.7 mg/dL (8.5-10.1); Magnesium 2.4 mg/dL (1.6-2.6); Potassium 4.5 mmol/L (3.5-5.1)
[2022-07-18 06:36] LABS: BUN/Creatinine Ratio 17.4; Bilirubin, Total 0.6 mg/dL (0.2-1.0); Phosphorus 4.4 mg/dL (2.5-4.90); Total Protein 6.6 g/dL (6.4-8.2)
[2022-07-18] MEDS ORDERED: SODIUM CHL 0.9% 1000 ML BAG XX ONE (07:00)
[2022-07-18] MEDS: ALBUMIN 25% 100 ML IV PRN (07:00)
[2022-07-18 08:34] LABS: Band Neutrophils % (manual) 8; Eosinophils % (manual) 1 (0-7); Lymphocytes % (manual) 8 (10.0-50.0); Metamyelocytes % 1; Monocytes % (manual) 8 (0-12); Myelocytes % 3
[2022-07-18] MEDS: ASPirin 81 mg TAB PO SCH (09:23)
[2022-07-18] MEDS: PANTOPRAZOLE 40 MG/10 ML VIAL INJ IV SCH ×2 (09:23→21:46)
[2022-07-18] MEDS: AMIODARONE HCL 200 MG TAB GT SCH ×2 (09:23→21:46)
[2022-07-18] MEDS: amLODIPine BESYLATE 5 MG TAB GT SCH (09:24)
[2022-07-18] MEDS: CEFEPIME 2 GM in SODIUM CHL 0.9% 50 ML IV SCH (09:25)
[2022-07-18] MEDS: CARVEDILOL 12.5 MG TAB PO SCH ×2 (09:25→21:47)
[2022-07-18] MEDS: CLOPIDOGREL BISULFATE 75 MG TAB PO SCH (09:25)
[2022-07-18] MEDS: SODIUM CHLOR 0.9% PF (SALINE LOCK) 10ML VIAL/SYR IV SCH ×2 (09:25→21:47)
[2022-07-18] MEDS: PROPOFOL 100 ML IV SCH (13:00)
[2022-07-18] MEDS: fentaNYL Drip 2500mCg/250mlNS 250 ML IV SCH (13:00)
[2022-07-18] MEDS: MIDAZOLAM DRIP 50 mg/50mL 50 ML IV SCH (13:00)
[2022-07-18] MEDS: LEVOTHYROXINE SODIUM 100 MCG/5 ML INJ IV SCH (13:58)
[2022-07-18] MEDS: ALBUTEROL MEDNEB 2.5 mg/3ml NEB NEB PRN (18:33)
[2022-07-18] MEDS: IPRATROPIUM BROM 0.5 MG/2.5ML INH SOL NEB PRN (18:33)
[2022-07-18] MEDS ORDERED: TPN PER PHARMACY IV NR ×7 (20:00)
[2022-07-18] MEDS ORDERED: EPOETIN ALFA-EPBX 4,000 UNIT/ML VIAL SC ONE (21:00)
[2022-07-18] MEDS: ATORVASTATIN 20 MG TAB PO SCH (21:46)
[2022-07-19] VITALS (94 sets, daily range): BP systolic 114–161; BP diastolic 50–81
[2022-07-19 04:17] LABS: Hematocrit 23.3 % (41.0-53.0); Hemoglobin 7.7 g/dL (13.5-17.5); Mean Corpuscular Hemoglobin 28.9 pg (28.0-32.0); Mean Corpuscular Hgb Conc. 33.2 g/dL (32.0-36.0); Mean Corpuscular Volume 87.3 fL (80.0-100.0); Red Blood Cells 2.66 10^6/uL (4.5-5.90); White Blood Cell 18.1 10^3/uL (4.4-10.8)
[2022-07-19 04:28] LABS: Albumin 3.2 g/dL (3.4-5.0); Calcium 10.4 mg/dL (8.5-10.1); Magnesium 2.3 mg/dL (1.6-2.6); Potassium 4.2 mmol/L (3.5-5.1)
[2022-07-19 04:31] LABS: BUN/Creatinine Ratio 17.7; Basophils % (manual) 0 (0.0-2.0); Bilirubin, Total 0.6 mg/dL (0.2-1.0); Blast Cells 0; Eosinophils % (manual) 0 (0-7); Metamyelocytes % 0; Phosphorus 3.3 mg/dL (2.5-4.90); Promyelocytes % 0; Reactive Lymphocytes 0; Total Protein 6.8 g/dL (6.4-8.2)
[2022-07-19] MEDS: hydrALAZINE HCL 20 MG/ML VL IV PRN (05:32)
[2022-07-19] MEDS: FUROSEMIDE 100 MG/10ML VIAL IV SCH ×2 (05:33→18:00)
[2022-07-19] MEDS: ACCU-CHEK COMFORT CURVE STRIP VI SCH ×4 (05:33→18:00)
[2022-07-19] MEDS: InsuLIN REG 1unit/0.01ml Soln (100units/ml) SC SCH ×4 (06:00→18:00)
[2022-07-19 08:05] LABS: Band Neutrophils % (manual) 9; Lymphocytes % (manual) 11 (10.0-50.0); Monocytes % (manual) 14 (0-12); Myelocytes % 1
[2022-07-19] MEDS: LEVOTHYROXINE SODIUM 100 MCG/5 ML INJ IV SCH (09:34)
[2022-07-19] MEDS: AMIODARONE HCL 200 MG TAB GT SCH ×2 (09:34→22:43)
[2022-07-19] MEDS: ASPirin 81 mg TAB PO SCH (09:34)
[2022-07-19] MEDS: PANTOPRAZOLE 40 MG/10 ML VIAL INJ IV SCH ×2 (09:34→22:41)
[2022-07-19] MEDS: CLOPIDOGREL BISULFATE 75 MG TAB PO SCH (09:35)
[2022-07-19] MEDS: CARVEDILOL 12.5 MG TAB PO SCH ×3 (09:36→23:43)
[2022-07-19] MEDS: amLODIPine BESYLATE 5 MG TAB GT SCH (09:37)
[2022-07-19] MEDS: SODIUM CHLOR 0.9% PF (SALINE LOCK) 10ML VIAL/SYR IV SCH ×2 (10:17→22:00)
[2022-07-19] MEDS: CEFEPIME 2 GM in SODIUM CHL 0.9% 50 ML IV SCH (10:20)
[2022-07-19] MEDS ORDERED: FUROSEMIDE 20 MG/2 ML VIAL IV ONE (11:45)
[2022-07-19] MEDS: PROPOFOL 100 ML IV SCH (13:00)
[2022-07-19] MEDS: MIDAZOLAM DRIP 50 mg/50mL 50 ML IV SCH (13:00)
[2022-07-19] MEDS: fentaNYL Drip 2500mCg/250mlNS 250 ML IV SCH (13:00)
[2022-07-19] MEDS: ALBUTEROL MEDNEB 2.5 mg/3ml NEB NEB PRN (18:39)
[2022-07-19] MEDS: IPRATROPIUM BROM 0.5 MG/2.5ML INH SOL NEB PRN (18:39)
[2022-07-19] MEDS ORDERED: TPN PER PHARMACY IV NR ×8 (20:00)
[2022-07-19] MEDS: ATORVASTATIN 20 MG TAB PO SCH (22:42)
[2022-07-20] VITALS (84 sets, daily range): BP systolic 112–158; BP diastolic 54–97
[2022-07-20 03:57] LABS: Hemoglobin 7.2 g/dL (13.5-17.5); Red Cell Distribution Width 16.3 % (11.8-14.3)
[2022-07-20 03:59] LABS: Hematocrit 21.6 % (41.0-53.0); Mean Corpuscular Hemoglobin 29.3 pg (28.0-32.0); Mean Corpuscular Hgb Conc. 33.4 g/dL (32.0-36.0); Mean Corpuscular Volume 87.6 fL (80.0-100.0); Red Blood Cells 2.46 10^6/uL (4.5-5.90); White Blood Cell 16.2 10^3/uL (4.4-10.8)
[2022-07-20 04:07] LABS: Basophils % (manual) 0 (0.0-2.0); Blast Cells 0; Eosinophils % (manual) 0 (0-7); Metamyelocytes % 0; Promyelocytes % 0; Reactive Lymphocytes 0
[2022-07-20 04:18] LABS: Albumin 2.8 g/dL (3.4-5.0); Calcium 10.5 mg/dL (8.5-10.1); Magnesium 2.1 mg/dL (1.6-2.6); Potassium 4.3 mmol/L (3.5-5.1)
[2022-07-20 04:21] LABS: BUN/Creatinine Ratio 17.8
[2022-07-20 04:23] LABS: Bilirubin, Total 0.6 mg/dL (0.2-1.0); Phosphorus 3.5 mg/dL (2.5-4.90); Total Protein 6.4 g/dL (6.4-8.2)
[2022-07-20 04:59] LABS: Band Neutrophils % (manual) 13; Lymphocytes % (manual) 14 (10.0-50.0); Monocytes % (manual) 12 (0-12); Myelocytes % 1
[2022-07-20] MEDS: FUROSEMIDE 100 MG/10ML VIAL IV SCH ×2 (06:00→18:34)
[2022-07-20] MEDS: InsuLIN REG 1unit/0.01ml Soln (100units/ml) SC SCH ×4 (06:00→17:24)
[2022-07-20] MEDS: ACCU-CHEK COMFORT CURVE STRIP VI SCH ×4 (06:00→17:24)
[2022-07-20] MEDS ORDERED: SODIUM CHL 0.9% 1000 ML BAG XX ONE (07:00)
[2022-07-20] MEDS: ALBUTEROL MEDNEB 2.5 mg/3ml NEB NEB PRN ×4 (08:00→18:19)
[2022-07-20] MEDS: IPRATROPIUM BROM 0.5 MG/2.5ML INH SOL NEB PRN ×4 (08:01→18:20)
[2022-07-20] MEDS: ASPirin 81 mg TAB PO SCH (11:30)
[2022-07-20] MEDS: PANTOPRAZOLE 40 MG/10 ML VIAL INJ IV SCH (11:30)
[2022-07-20] MEDS: CEFEPIME 2 GM in SODIUM CHL 0.9% 50 ML IV SCH (11:30)
[2022-07-20] MEDS: AMIODARONE HCL 200 MG TAB GT SCH (11:30)
[2022-07-20] MEDS: LEVOTHYROXINE SODIUM 100 MCG/5 ML INJ IV SCH (11:30)
[2022-07-20] MEDS: amLODIPine BESYLATE 5 MG TAB GT SCH (11:31)
[2022-07-20] MEDS: CARVEDILOL 12.5 MG TAB PO SCH (11:31)
[2022-07-20] MEDS: CLOPIDOGREL BISULFATE 75 MG TAB PO SCH (11:31)
[2022-07-20] MEDS: SODIUM CHLOR 0.9% PF (SALINE LOCK) 10ML VIAL/SYR IV SCH (11:32)
[2022-07-20] MEDS: MIDAZOLAM DRIP 50 mg/50mL 50 ML IV SCH (13:00)
[2022-07-20] MEDS: fentaNYL Drip 2500mCg/250mlNS 250 ML IV SCH (13:00)
[2022-07-20] MEDS: PROPOFOL 100 ML IV SCH (13:00)
[2022-07-20] MEDS ORDERED: Jevity 1.2 Cal/Fiber 1 Liter GT SCH (15:15)
[2022-07-20] MEDS ORDERED: TPN PER PHARMACY IV NR ×8 (20:00)
[2022-07-20] MEDS ORDERED: EPOETIN ALFA-EPBX 10,000 UNIT/1ML VIAL SC ONE (21:00)
== END 2022-07-20 21:54 | DRG 3 ==
LOC: ER 10:45 → TELE 13:06 → ICU WEST 13:34
PROVIDERS: ADMIT Internal Medicine Adult Congenital Heart Disease; ATTEND Internal Medicine Geriatric Medicine
PROC: 5A1955Z Respiratory Ventilation, Greater than 96 Consecutive Hours (ICD-10-PCS; principal; 2022-06-10)
PROC: 027034Z Dilation of Coronary Artery, One Artery with Drug-eluting Intraluminal Device, Percutaneous Approach (ICD-10-PCS; 2022-06-10)
PROC: 0BH17EZ Insertion of Endotracheal Airway into Trachea, Via Natural or Artificial Opening (ICD-10-PCS; 2022-06-10)
PROC: 4A023N7 Measurement of Cardiac Sampling and Pressure, Left Heart, Percutaneous Approach (ICD-10-PCS; 2022-06-10)
PROC: B211YZZ Fluoroscopy of Multiple Coronary Arteries using Other Contrast (ICD-10-PCS; 2022-06-10)
PROC: 5A12012 Performance of Cardiac Output, Single, Manual (ICD-10-PCS; 2022-06-10)
PROC: 02HV33Z Insertion of Infusion Device into Superior Vena Cava, Percutaneous Approach (ICD-10-PCS; 2022-06-10)
PROC: 0B918ZZ Drainage of Trachea, Via Natural or Artificial Opening Endoscopic (ICD-10-PCS; 2022-06-18)
PROC: 0B938ZZ Drainage of Right Main Bronchus, Via Natural or Artificial Opening Endoscopic (ICD-10-PCS; 2022-06-23)
PROC: 0BCB8ZZ Extirpation of Matter from Left Lower Lobe Bronchus, Via Natural or Artificial Opening Endoscopic (ICD-10-PCS; 2022-06-23)
PROC: 02HV33Z Insertion of Infusion Device into Superior Vena Cava, Percutaneous Approach (ICD-10-PCS; 2022-06-26)
PROC: B548ZZA Ultrasonography of Superior Vena Cava, Guidance (ICD-10-PCS; 2022-06-26)
PROC: 0B918ZZ Drainage of Trachea, Via Natural or Artificial Opening Endoscopic (ICD-10-PCS; 2022-06-28)
PROC: 0B110F4 Bypass Trachea to Cutaneous with Tracheostomy Device, Open Approach (ICD-10-PCS; 2022-07-03)
PROC: 5A1D70Z Performance of Urinary Filtration, Intermittent, Less than 6 Hours Per Day (ICD-10-PCS; 2022-07-03)
PROC: 02HV33Z Insertion of Infusion Device into Superior Vena Cava, Percutaneous Approach (ICD-10-PCS; 2022-07-03)
PROC: B548ZZA Ultrasonography of Superior Vena Cava, Guidance (ICD-10-PCS; 2022-07-03)
PROC: 5A1D70Z Performance of Urinary Filtration, Intermittent, Less than 6 Hours Per Day (ICD-10-PCS; 2022-07-04)
PROC: 5A1D70Z Performance of Urinary Filtration, Intermittent, Less than 6 Hours Per Day (ICD-10-PCS; 2022-07-06)
PROC: 5A1D70Z Performance of Urinary Filtration, Intermittent, Less than 6 Hours Per Day (ICD-10-PCS; 2022-07-08)
PROC: 30233N1 Transfusion of Nonautologous Red Blood Cells into Peripheral Vein, Percutaneous Approach (ICD-10-PCS; 2022-07-08)
PROC: 5A1D70Z Performance of Urinary Filtration, Intermittent, Less than 6 Hours Per Day (ICD-10-PCS; 2022-07-09)
PROC: 5A1D70Z Performance of Urinary Filtration, Intermittent, Less than 6 Hours Per Day (ICD-10-PCS; 2022-07-11)
PROC: 02HV33Z Insertion of Infusion Device into Superior Vena Cava, Percutaneous Approach (ICD-10-PCS; 2022-07-11)
PROC: B548ZZA Ultrasonography of Superior Vena Cava, Guidance (ICD-10-PCS; 2022-07-11)
PROC: 5A1D70Z Performance of Urinary Filtration, Intermittent, Less than 6 Hours Per Day (ICD-10-PCS; 2022-07-12)
PROC: 5A1D70Z Performance of Urinary Filtration, Intermittent, Less than 6 Hours Per Day (ICD-10-PCS; 2022-07-13)
PROC: 5A1D70Z Performance of Urinary Filtration, Intermittent, Less than 6 Hours Per Day (ICD-10-PCS; 2022-07-14)
PROC: 0B918ZZ Drainage of Trachea, Via Natural or Artificial Opening Endoscopic (ICD-10-PCS; 2022-07-15)
PROC: 5A1D70Z Performance of Urinary Filtration, Intermittent, Less than 6 Hours Per Day (ICD-10-PCS; 2022-07-16)
PROC: 5A1D70Z Performance of Urinary Filtration, Intermittent, Less than 6 Hours Per Day (ICD-10-PCS; 2022-07-18)
PROC: 5A1D70Z Performance of Urinary Filtration, Intermittent, Less than 6 Hours Per Day (ICD-10-PCS; 2022-07-20)
DX: I21.09 ST elevation (STEMI) myocardial infarction involving other coronary artery of anterior wall (principal); G93.41 Metabolic encephalopathy; J96.01 Acute respiratory failure with hypoxia; J69.0 Pneumonitis due to inhalation of food and vomit; I46.2 Cardiac arrest due to underlying cardiac condition; I49.01 Ventricular fibrillation; N17.0 Acute kidney failure with tubular necrosis; N18.6 End stage renal disease; E87.29 Other acidosis; G93.1 Anoxic brain damage, not elsewhere classified; J90 Pleural effusion, not elsewhere classified; R57.9 Shock, unspecified; I47.20 Ventricular tachycardia, unspecified; I82.C11 Acute embolism and thrombosis of right internal jugular vein; K56.7 Ileus, unspecified; K92.2 Gastrointestinal hemorrhage, unspecified; G72.81 Critical illness myopathy; I12.0 Hypertensive chronic kidney disease with stage 5 chronic kidney disease or end stage renal disease; J95.01 Hemorrhage from tracheostomy stoma; Z99.11 Dependence on respirator [ventilator] status; J98.11 Atelectasis; Z20.822 Contact with and (suspected) exposure to COVID-19; E03.9 Hypothyroidism, unspecified; E66.9 Obesity, unspecified; E78.5 Hyperlipidemia, unspecified; E87.6 Hypokalemia; G47.33 Obstructive sleep apnea (adult) (pediatric); I25.10 Atherosclerotic heart disease of native coronary artery without angina pectoris; D64.9 Anemia, unspecified; E66.01 Morbid (severe) obesity due to excess calories; E87.70 Fluid overload, unspecified; E88.09 Other disorders of plasma-protein metabolism, not elsewhere classified; K76.9 Liver disease, unspecified; R13.10 Dysphagia, unspecified; R31.0 Gross hematuria; E11.22 Type 2 diabetes mellitus with diabetic chronic kidney disease; Z68.28 Body mass index [BMI] 28.0-28.9, adult; Z99.2 Dependence on renal dialysis; Z95.5 Presence of coronary angioplasty implant and graft; Z82.49 Family history of ischemic heart disease and other diseases of the circulatory system; Z79.899 Other long term (current) drug therapy; Z79.82 Long term (current) use of aspirin; Z79.02 Long term (current) use of antithrombotics/antiplatelets
CPT/HCPCS: 31500; 36415; 36569; 36600; 70450; 71045; 74176; 74177; 76604; 76705; 76775; 80048; 80053; 80061; 80202; 81001; 82105; 82270; 82378; 82550; 82570; 82728; 82805; 82962; 83036; 83540; 83550; 83690; 83735; 83880; 84100; 84132; 84154; 84156; 84300; 84443; 84478; 84484; 85007; 85014; 85018; 85025; 85027; 85379; 85610; 85730; 86301; 86850; 86900; 86901; 86920; 87040; 87070; 87077; 87081; 87086; 87205; 87426; 90935; 93005; 93306; 93970; 94002; 94003; 94640; 95819; 96374; 97110; 97163; 99152; 99153; 99291; A4605; C1874; C9113; G0378; J0171; J0696; J1100; J1450; J1642; J1815; J2001; J2185; J2250; J2405; J2543; J2704; J3480; J3490; J7042; J7060; J7131; P9047; Q9967

== ENCOUNTER 2022-08-24 13:41 | Emergency (ER) | payer OTHER ==
[~2022-08-24] VITALS: Ht 185.4 cm; Wt 89.0 kg
[2022-08-24 14:23] LABS: Hematocrit 31.1 % (41.0-53.0); Hemoglobin 9.7 g/dL (13.5-17.5); Mean Corpuscular Hemoglobin 27.3 pg (28.0-32.0); Mean Corpuscular Hgb Conc. 31.1 g/dL (32.0-36.0); Mean Corpuscular Volume 87.6 fL (80.0-100.0); Red Blood Cells 3.55 10^6/uL (4.5-5.90); White Blood Cell 15.2 10^3/uL (4.4-10.8)
[2022-08-24 14:28] LABS: Basophils % (manual) 0 (0.0-2.0); Blast Cells 0; Eosinophils % (manual) 0 (0-7); Metamyelocytes % 0; Myelocytes % 0; Promyelocytes % 0; Reactive Lymphocytes 0
[2022-08-24 14:37] LABS: Albumin 2.1 g/dL (3.4-5.0); Calcium 7.9 mg/dL (8.5-10.1); Potassium 4.1 mmol/L (3.5-5.1)
[2022-08-24 14:42] LABS: BUN/Creatinine Ratio 4.7 (10.0-20.0); Bilirubin, Total 0.3 mg/dL (0.2-1.0); Magnesium 2.2 mg/dL (1.6-2.6); Total Protein 5.4 g/dL (6.4-8.2)
[2022-08-24] MEDS ORDERED: PIPERACILLIN-TAZOB 2.25GM 50 ML IV ONE (15:15)
[2022-08-24 16:27] LABS: Band Neutrophils % (manual) 2; Lymphocytes % (manual) 8 (10.0-50.0); Monocytes % (manual) 7 (0-12)
[2022-08-24 21:51] VITALS: BP 120/73
== END 2022-08-24 22:09 | disposition short-term general hospital (02) ==
LOC: EDUNIT# 13:41 → ER 13:41 → EDBD 13:41 → ER 22:09
DX: R55 Syncope and collapse (principal); I95.9 Hypotension, unspecified; E87.1 Hypo-osmolality and hyponatremia; E11.22 Type 2 diabetes mellitus with diabetic chronic kidney disease; I12.0 Hypertensive chronic kidney disease with stage 5 chronic kidney disease or end stage renal disease; N18.6 End stage renal disease; Z99.2 Dependence on renal dialysis; D72.829 Elevated white blood cell count, unspecified; K21.9 Gastro-esophageal reflux disease without esophagitis; Z98.890 Other specified postprocedural states; Z20.822 Contact with and (suspected) exposure to COVID-19
CPT/HCPCS: 36415; 71045; 80053; 83605; 83735; 84484; 85007; 85027; 87040; 87426; 93005; 96365; 96366; 99291; J2543